=== PATIENT | female | born 1945 | race Caucasian/White ===

== ENCOUNTER 2022-12-31 16:16 | Emergency (ER) | payer MEDICARE, OTHER, SELFPAY ==
--- NOTE | 2022-12-31 16:15 | ECG_ITS ---
APPROVED REPORT Exam: Resting ECG HR:81 bpm ECG Measurements Heart Rate 81 AXES CO 195 P 78 QRSd 93 QRS -28 QT 395 T 69 QTc 432 Conclusion SINUS RHYTHM SEPTAL MYOCARDIAL INFARCTION , PROBABLY OLD [40+ ms Q WAVE IN V1/V2] ABNORMAL ECG UNCONFIRMED REPORT Electronically signed by : Artemio Bearden MD 01/02/2023 17:47:30
[2022-12-31 16:16] VITALS: BP 164/54; PULSE 78; RESP 16; TEMP 36.7; O2SAT 95; BMI 20.1
--- NOTE | 2022-12-31 16:19 | XR_ITS ---
PROCEDURE INFORMATION: Exam: XR Chest Exam date and time: 12/31/2022 4:28 PM Age: 77 years old Clinical indication: Cough and shortness of breath; Additional info: SOA TECHNIQUE: Imaging protocol: Radiologic exam of the chest. Views: 1 view. COMPARISON: No relevant prior studies available. FINDINGS: Lungs: No evidence of pneumonia or interstitial edema. Pleural spaces: Unremarkable. No pleural effusion. No pneumothorax. Heart/Mediastinum: Unremarkable. No cardiomegaly. Bones/joints: Unremarkable. IMPRESSION: No evidence of pneumonia or interstitial edema.
--- NOTE | 2022-12-31 16:28 | HMH.EDGENADL ---
Discharge Plan Disposition Patient Disposition: Home, Self-Care Condition: Good Prescriptions Prescriptions: New nitrofurantoin monohyd/m-cryst [Macrobid] 100 mg capsule 100 mg PO BID 7 Days Qty: 14 0RF Rx Instructions: must administer with a meal/food epinephrine [EpiPen] 0.3 mg/0.3 mL auto-injector 0.3 mg IM Q10M PRN (Reason: anaphylaxis) Qty: 2 0RF Rx Instructions: for 2 doses Referrals Follow up/Referrals: Provider,MD Padilla [Primary Care Provider] - See instructions Leif Tamez MD [Staff Physician] - See instructions Activity Restrictions/Add. Instructions Additional Instructions/Restrictions: You were evaluated in the emergency department today. At this time, your heart enzyme is mildly elevated. Please see Dr. Longo in cardiology clinic tomorrow at 11am. Call them in the morning to verify the appointment. quality assurance supervisor trim the prescriptions for the EpiPen and antibiotics at the pharmacy. Use the EpiPen as needed for severe allergic reactions. You may take Benadryl at home every 8 hours as needed for symptoms. Complete full course of antibiotics for urinary tract infection as prescribed. Return to the emergency department for any new or worsening symptoms, such as chest pain, shortness of breath, throat swelling, or other concerns. Clinical Impressions Clinical Impression: Anaphylaxis, Acute UTI Instructions Patient Instructions: DI for Urinary Tract Infection (UTI), DI for Adverse Drug Reaction -- Allergic Discharge ED Provider: Yandy Baer General Adult HPI General Chief complaint: Allergic Reaction Stated complaint: ALLERGIC REACTION Time Seen by Provider: 12/31/22 16:19 History of Present Illness HPI narrative: This patient is a 77-year-old female with a history of hypertension, hyperlipidemia, anxiety, and GERD presenting to the emergency department for evaluation with concern for possible allergic reaction. Patient reports that she is allergic to amoxicillin, but she developed UTI symptoms today so she took a pill of amoxicillin at home that was previously prescribed to her by her dentist. She did not take it initially when she was prescribed by her dentist given her allergy, but with UTI symptoms today she thought that it might help. 40 minutes after taking this medication, she developed tightness in her throat, swelling of her tongue, and perioral tingling. She also developed an urticarial rash as well as shortness of breath. She took 25 mg of Benadryl at home, and EMS gave her another 25 mg of Benadryl. They also gave her a nebulizer treatment for wheezing. Upon arrival, she started to complain of nausea and feeling she was going to vomit. She reports that she was fine prior to this aside from the UTI symptoms. She denies any recent fevers, chills, chest pain, abdominal pain, change in bowel movements, or other concerns. Related Data Previous Rx's Medication Instructions Recorded epinephrine 0.3 mg/0.3 mL 0.3 mg (0.3 mL) IM Q10M PRN 12/31/22 injection, auto-injector (EpiPen) anaphylaxis #2 ea nitrofurantoin 100 mg PO BID 7 days #14 caps 12/31/22 monohydrate/macrocrystals 100 mg capsule (Macrobid) Allergies Allergy/AdvReac Type Severity Reaction Status Date / Time No Known Allergies Allergy Verified 12/31/22 18:56 [facility] Disclaimer: The information contained in this section may have been updated after the patient was seen, as this information can be updated by other users. Social History Smoking Status: Never smoker alcohol intake: never current occupational status: retired Travel in the last 8 weeks: None ROS Obtained: Yes All systems reviewed & no additional complaints except as documented Physical Exam General General appearance: alert and in no apparent distress Head Head exam: atraumatic and normocephalic Eye Eye exam: Present normal appearance, PERRL and EOMI ENT ENT exam: Pr
[2022-12-31 16:35] LABS: Basophils % 0.2 % (0.1-2.0); Eosinophils # 0.2 K/mm3 (0.0-0.4); Eosinophils % 1.6 % (0.1-12.0); Hematocrit 37.7 % (37.0-47.0); Hemoglobin 12.2 g/dL (12.2-16.2); Lymphocytes # 3.1 K/mm3 (0.7-4.5); Lymphocytes % 21.4 % (10-50); Mean Corpuscular HGB Conc 32.3 g/dL (31.8-35.4); Mean Corpuscular Hemoglobin 29.1 pg (27.0-31.2); Mean Corpuscular Volume 90.2 fl (81-99); Mean Platelet Volume 7.5 fl (7.4-10.4); Monocytes # 0.5 K/mm3 (0.1-1.0); Monocytes % 3.7 % (1.7-9.3); Neutrophils # 10.5 K/mm3 (1.8-7.8); Neutrophils % 73.2 % (37.0-80.0); Platelet Count 304 K/mm3 (142-424); Red Blood Count 4.18 M/mm3 (4.20-5.40); Red Cell Distribution Width 13.8 % (11.5-17.5); White Blood Count 14.4 K/mm3 (4.8-10.8)
[2022-12-31 16:40] VITALS: BP 180/77; PULSE 75; RESP 18; O2SAT 94
[2022-12-31 16:46] LABS: Alanine Aminotransferase 31 U/L (12-78); Albumin Level 3.7 g/dl (3.5-5.0); Albumin/Globulin Ratio 1.3 (1.1-1.8); Alkaline Phosphatase 75 U/L (38-126); Aspartate Amino Transferase 43 U/L (14-36); Blood Urea Nitrogen 21 mg/dl (7-17); Calcium 8.3 mg/dl (8.4-10.2); Carbon Dioxide 27 mmol/L (22.0-30.0); Chloride 107 mmol/L (98-107); Creatinine Clearance Estimated 37 mL/min (50-200); Estimated Glomerular Filt Rate 61 ml/min (>60); GFR (African American) 73 ML/MIN (>60); Globulin 2.8 g/dL (1.3-3.2); Glucose 130 mg/dl (74-100); Sodium 141 mmol/L (136-145); Total Protein,Serum 6.5 g/dl (6.3-8.2)
[2022-12-31 16:58] LABS: Troponin I 0.02 ng/ml (0.00-0.034)
[2022-12-31 18:31] LABS: Microscopic, Urine URINE MICROSCOPIC (MICROSCOPIC)
[2022-12-31 18:49] LABS: Appearance,Urine CLEAR (Clear); Bilirubin,Urine Negative (Negative); Blood, Urine Negative (Negative); Color,Urine YELLOW (Yellow); Glucose,Urine (UA) Negative (Negative); Ketones,Urine Negative (Negative); Leukocyte Esterase,Urine 1+ (Negative); Nitrate,Urine Negative (Negative); Protein,Urine Negative (Negative); Specific Gravity, Urine 1.015 (1.005-1.030); Urobilinogen,Urine 0.2 EU/dl (0.2)
[2022-12-31 19:01] VITALS: BP 126/50; PULSE 76; O2SAT 98
[2022-12-31 20:09] LABS: Troponin I 0.06 ng/ml (0.00-0.034)
--- NOTE | 2022-12-31 20:22 | ECG_ITS ---
APPROVED REPORT Exam: Resting ECG HR:69 bpm ECG Measurements Heart Rate 69 AXES QRSd 92 QRS -24 QT 431 T 82 QTc 450 Conclusion SUPRAVENTRICULAR RHYTHM BORDERLINE LEFT AXIS DEVIATION [QRS AXIS < -20] NONSPECIFIC T-WAVE ABNORMALITY ABNORMAL RHYTHM ECG UNCONFIRMED REPORT Electronically signed by : Artemio Bearden MD 01/02/2023 17:46:52
--- NOTE | 2022-12-31 20:35 | PC.NURSE ---
Dr. Laws paged for DR. Baer
[2022-12-31 20:42] VITALS: BP 138/56; PULSE 70; RESP 13; TEMP 36.7; O2SAT 97
--- NOTE | 2022-12-31 20:47 | PC.NURSE ---
rounded on patient, family at bedside no needs at this time
== END 2022-12-31 20:51 | disposition home or self-care (01) ==
PROVIDERS: Emergency Provider Emergency Medicine
DX: T78.2XXA Anaphylactic shock, unspecified, initial encounter (principal); R22.0 Localized swelling, mass and lump, head; L50.9 Urticaria, unspecified; T36.95XA Adverse effect of unspecified systemic antibiotic, initial encounter; N39.0 Urinary tract infection, site not specified; I10 Essential (primary) hypertension; E78.5 Hyperlipidemia, unspecified; F41.9 Anxiety disorder, unspecified; K21.9 Gastro-esophageal reflux disease without esophagitis
CPT/HCPCS: 71045; 80053; 81001; 84484; 85025; 87086; 87088; 87186; 93005; 96372; 96374; 96375; 99285; J2405

== ENCOUNTER → 2023-01-21 06:05 | Outpatient (CLI) | payer MEDICARE, OTHER, SELFPAY ==
--- NOTE | 2023-01-21 06:17 | NM_ITS ---
APPROVED REPORT Exam: Nuclear Stress Test Indication: palpitations..fatigue Patient Location: Outpatient Stress Tech: Mary Milian ND Tech:Bhavana Burciaga RUPALForest RT(R)(N) Ht: 5 ft 2 in Wt: 118 lbs Bra Size: 34a HR: 62 bpm BP: 184/65 mmHg BSA: 1.53 m2 Rhythm: NSR TID: 1.11 BMI: 21.5 History: palpitations..fatigue Procedure: Patient received 0.4 mg of intravenous Lexiscan, resting heart rate 62 bpm, resting blood pressure 184/65 mmHg, with Lexiscan maximum heart rate achieved was 82 bpm which is 85 % of the maximum predicted heart rate and blood pressure was 184/65 mmHg. With Lexiscan, patient denied any complaint of chest pain. Cardiac Stress and Resting SPECT Images: Cardiac Stress and Resting SPECT images were obtained using technetium 99m Myoview 31.2 mCi stress and 10.86 mCi at rest. Resting and stress imaging in both supine and prone positions demonstrate no evidence of fixed or reversible perfusion defects. Gated imaging demonstrates normal global and regional LV systolic function. LVEF is calculated at 62% Conclusion: No evidence of fixed or reversible perfusion defects. Gated imaging demonstrates normal global and regional LV systolic function. LVEF is calculated at 62% Electronically signed by : Qing Tamez, 01/23/2023 16:33:11
--- NOTE | 2023-01-21 11:17 | CA_ITS ---
APPROVED REPORT Exam: Pharmacologic Technologist: Mary Milian Ht: 5 ft 2 in Wt: 118 lbs BSA: 1.53 m2 HR: 59 bpm BP: 184/65 mmHg Rhythm: NSR Indications: Chest pain, Shortness of Breath Medical History Medications: Aspirin,,,,, Propranolol,,,,, Pantoprazole,,,,, Atorvastatin,,,,, Escitalopram,,,,, Montelukast,,,,, Multivitamin,,,,, Epinephrine,,,,, Macrobid,,,,, Stress Test Details Test: LEXISCAN HR Resting HR: 62 bpm Max Heart Rate (APMHR): 143 bpm Max HR Achieved: 82 bpm Target HR (85% APMHR): 122 bpm % of APMHR: 57 Recovery HR: 75 bpm BP Resting BP: 184.0/65.0 mmHg Max BP: 184.0/65.0 mmHg Recovery BP: 167.0/55.0 mmHg ECG Resting ECG: Sinus bradycardia, otherwise normal Stress ECG: No change Arrhythmia: PACs Clinical Exercise duration: 04:11 min Highest Stage Achieved: Exercise capacity: n/a METs Stress ECG Conclusion Symptoms: Mild tingling in the arms. No chest pain. Arrhythmias/Ectopy: occasional PAC ST-T Changes: No significant ST changes Conclusion: Unremarkable Lexiscan stress. Myoview images reported separately. Test Summary REST . . . . . . . Resting REST 04:22 . . 62 . 184/ 65 . . Stage 1 . . . . . . . Myoview Injected Stage 1 01:00 . . 71 . . . . Stage 2 01:00 . . 77 . 169/ 66 . . Stage 3 01:00 . . 77 . 173/ 63 . . Stage 4 01:00 . . 76 . . . . Stage 4 01:11 . . 77 . 174/ 65 . Stop exercise at 04:11 RECOVERY 01:00 . . 80 . . . . RECOVERY 02:00 . . 77 . 183/ 66 . . RECOVERY 03:00 . . 75 . 183/ 66 . . RECOVERY 03:49 . . 73 . 167/ 55 . . Electronically signed by : Qing Tamez, 01/23/2023 16:31:30
== END ==
PROVIDERS: PCP Nurse Practitioner Family; Visit Provider Physician Assistant
DX: J45.909 Unspecified asthma, uncomplicated (principal); R06.00 Dyspnea, unspecified; R42 Dizziness and giddiness; R77.8 Other specified abnormalities of plasma proteins; T78.2XXA Anaphylactic shock, unspecified, initial encounter; T78.40XA Allergy, unspecified, initial encounter
CPT/HCPCS: 78452; 93017; A9502; J2785

== ENCOUNTER → 2023-01-26 09:31 | Outpatient (CLI) | payer MEDICARE, OTHER, SELFPAY ==
--- NOTE | 2023-01-26 09:31 | MM_ITS ---
PROCEDURE INFORMATION: Exam: Bilateral Screening 3D Mammography Exam date and time: 01/26/2023 9:31 AM Age: 77 years old Clinical indication: Screening mammogram. Reportedly the patient has a palpable lump within her left breast currently. TECHNIQUE: Imaging protocol: Bilateral Screening tomosynthesis and 2D mammography including computer-aided detection (CAD) when performed. COMPARISON: MG DIGIT MAMM SCREENING 10/09/2017 8:00 AM FINDINGS: MAMMOGRAPHY: Breast composition: The breast is heterogeneously dense, which may obscure small masses. Mass: None. Architectural distortion: No new or suspicious architectural distortion. Calcifications: No new or suspicious calcifications are present Asymmetric density: No new or suspicious asymmetric density is present Skin thickening: None. Axillary adenopathy: None. IMPRESSION: No mammographic evidence of malignancy. Targeted ultrasound of the patient's reported palpable of the upper outer left middle 1/3 is required to complete this examination based on clinical presentation ASSESSMENT: BI-RADS category 0: Incomplete-need additional imaging evaluation
== END ==
PROVIDERS: PCP Nurse Practitioner Family; Visit Provider Physician Assistant
DX: Z12.31 Encounter for screening mammogram for malignant neoplasm of breast (principal)
CPT/HCPCS: 77063; 77067

== ENCOUNTER 2023-02-12 13:17 | Emergency (ER) | payer MEDICARE, OTHER, SELFPAY ==
[2023-02-12 13:19] VITALS: BP 190/75; PULSE 68; RESP 16; TEMP 36.4; O2SAT 98; BMI 21.4
[2023-02-12 13:24] VITALS: BP 190/75; PULSE 61; O2SAT 98
[2023-02-12 13:31] VITALS: BP 180/69; PULSE 67; O2SAT 98
--- NOTE | 2023-02-12 13:39 | ECG_ITS ---
APPROVED REPORT Exam: Resting ECG HR:59 bpm ECG Measurements Heart Rate 59 AXES MN 220 P 79 QRSd 87 QRS -12 QT 439 T 71 QTc 439 Conclusion SINUS BRADYCARDIA WITH FIRST DEGREE AV BLOCK LEFT VENTRICULAR HYPERTROPHY AND ST-T CHANGE [VOLTAGE CRITERIA PLUS ST/T ABNORMALITY] ABNORMAL ECG UNCONFIRMED REPORT Electronically signed by : Artemio Bearden MD 02/13/2023 16:02:55
--- NOTE | 2023-02-12 13:53 | HMH.EDGENADL ---
Discharge Plan Disposition Patient Disposition: Home, Self-Care Prescriptions Prescriptions: No Action losartan 50 mg tablet 50 mg PO DAILY Qty: 30 2RF atorvastatin 40 mg tablet 40 mg PO DAILY pantoprazole 40 mg tablet,delayed release (DR/EC) 40 mg PO DAILY montelukast 10 mg tablet 10 mg PO DAILY aspirin 81 mg tablet 81 mg PO DAILY propranolol 120 mg capsule,extended release 24 hr 120 mg PO DAILY tmrcmuzwiusg-cghxgvyc-keusqx Tablet 1 tab PO DAILY escitalopram oxalate 20 mg tablet 20 mg PO DAILY nitrofurantoin monohyd/m-cryst [Macrobid] 100 mg capsule 100 mg PO BID 7 Days Qty: 14 0RF Rx Instructions: must administer with a meal/food epinephrine [EpiPen] 0.3 mg/0.3 mL auto-injector 0.3 mg IM Q10M PRN (Reason: anaphylaxis) Qty: 2 0RF Rx Instructions: for 2 doses Referrals Follow up/Referrals: Provider,Referral, MD [Primary Care Provider] - See instructions Activity Restrictions/Add. Instructions Additional Instructions/Restrictions: At this time it was felt you are safe to be discharged home. Please present to Dr. Pete's office for continued evaluation and antihypertensive administration as well as establishment of care. Clinical Impressions Clinical Impression: Asymptomatic hypertension Discharge ED Provider: Scottie Holliday General Adult HPI General Chief complaint: Recheck/Abnormal Lab/Rx Stated complaint: high blood pressure Time Seen by Provider: 02/12/23 13:40 Mode of Arrival: Ambulatory Source of Information: Patient Limitations: No Limitations Description of Symptoms (Recalled from ER Triage Doc. by RN): Presents to ED with increased BP. Patient reports she went to [facility] this morning and checked her BP and it was 172/82. Denies hx of Htn. Patient does take Losartan potassium 50mg daily. History of Present Illness HPI narrative: Patient is a 77-year-old female with no past medical leave high blood pressure who presents emergency department for evaluation of hypertension. Patient states that she went to dentist today and had partial dentures put in and when she returned home she checked her blood pressure and the top number was in the 170s. She does have a mild headache. No severe headache, no trauma, no chest pain, no shortness of breath, no other acute complaints at this time. Related Data Home Medications Medication Instructions Recorded Confirmed aspirin 81 mg tablet 81 mg PO DAILY 01/15/23 02/11/23 atorvastatin 40 mg tablet 40 mg PO DAILY 01/15/23 02/11/23 escitalopram oxalate 20 mg tablet 20 mg PO DAILY 01/15/23 02/11/23 montelukast 10 mg tablet 10 mg PO DAILY 01/15/23 02/11/23 xirfvaflbdho-aflsdwgf-vsiikw tablet 1 tab PO DAILY 01/15/23 02/11/23 pantoprazole 40 mg tablet,delayed 40 mg PO DAILY 01/15/23 02/11/23 release propranolol 120 mg capsule,24 120 mg PO DAILY 01/15/23 02/11/23 hr,extended release Previous Rx's Medication Instructions Recorded epinephrine 0.3 mg/0.3 mL 0.3 mg (0.3 mL) IM Q10M PRN 12/31/22 injection, auto-injector (EpiPen) anaphylaxis #2 ea nitrofurantoin 100 mg PO BID 7 days #14 caps 12/31/22 monohydrate/macrocrystals 100 mg capsule (Macrobid) losartan 50 mg tablet 50 mg PO DAILY #30 tabs 02/11/23 Allergies Allergy/AdvReac Type Severity Reaction Status Date / Time Penicillins AdvReac tongue Verified 02/11/23 08:43 swelling PFSH [facility] Disclaimer: The information contained in this section may have been updated after the patient was seen, as this information can be updated by other users. Medical History (Updated 02/12/23 @ 14:01 by Scottie Holliday MD) Allergies Asthma Breast pain, left Dizziness Dyspnea Elevated troponin HTN (hypertension) Left breast mass Screening mammogram, encounter for Social History Smoking Status: Never smoker alcohol intake: never current occupational status: retired Tra
[2023-02-12 14:09] VITALS: BP 169/64; PULSE 59; RESP 16; TEMP 36.4; O2SAT 96
== END 2023-02-12 14:12 | disposition home or self-care (01) ==
PROVIDERS: Emergency Provider Emergency Medicine
DX: R51.9 Headache, unspecified (principal); I10 Essential (primary) hypertension; J45.909 Unspecified asthma, uncomplicated
CPT/HCPCS: 93005; 99283

== ENCOUNTER → 2023-03-02 07:36 | Outpatient (CLI) | payer MEDICARE, OTHER, SELFPAY ==
--- NOTE | 2023-03-02 07:43 | CA_ITS ---
APPROVED REPORT EXAM: Comprehensive 2D, Doppler, and color-flow Echocardiogram Sr Vice President: Anel Foley CRT Ht: 5 ft 2 in Wt: 114lbs BSA: 1.51 BP: 153/56 mmHg Indications: Hypertension/HDD, asthma, ablation 2D Dimensions LVOT 1.69 cm (M/F) 1.5-2.5 LA Volume 44.90 mL LA Volume Index 29.74 mL/m2 (M/F) 16-34 M-Mode Dimensions RVDd 2.38 cm (0.9-2.6) LA Diam 3.87 cm (1.9-4.0) LVDd 4.27 cm (3.5-5.7) Ao Diam 3.27 cm (2.0-3.7) LVDs 2.53 cm (3.5-5.7) IVSd 1.37 cm (0.6-1.1) PWd 0.87 cm (0.6-1.1) EF (Teich) 71.80% FS 40.70% EDV (Teich) 81.70 mL TAPSE 2.56 (<1.7) ESV (Teich) 23.00 mL LV Diastology E Decel Time 163.00 (160-240 msec) E/A Ratio 0.80 MED E' 6.40 (< 7 cm/sec) MED A' 11.20 cm/s E'/MED E' Ratio 11.80 (>14) LAT E' 7.80 (<10 cm/sec) LAT A' 15.20 cm/s E/LAT E' Ratio 9.68 (>14) Aortic Valve AI PHT 510.00 ms AO Peak GR. 8.10 mmHg Mitral Valve MV A Velocity 94.00 (40-130 cm/s) E/A Ratio 0.80 MV Decel. Time 163.00 (160-240 ms) Pulmonary Valve PV Peak Velocity 214.00 (50-150 cm/s) Tricuspid Valve TR P. Velocity 219.00 cm/s RAP Estimate 10.00 mmHg RVSP 29.10 mmHg Left Ventricle The left ventricle is normal size. The left ventricular systolic function is normal. The left ventricular ejection fraction is within the normal range. There is normal left ventricular wall thickness. There is normal LV segmental wall motion. The left ventricular diastolic function is normal. LVEF is 60%. Right Ventricle The right ventricle is normal size. The right ventricular systolic function is normal. Atria The left atrium size is normal. The right atrium size is normal. There is no Doppler evidence of interatrial shunt. Aortic Valve The aortic valve is mildly thickened. There is no aortic valvular stenosis. Mild to moderate aortic regurgitation. Mitral Valve Mild mitral annular calcification. The mitral valve is mildly thickened. No evidence of mitral valve stenosis. Trace mitral regurgitation. Tricuspid Valve The tricuspid valve leaflets are thin and pliable. Trace tricuspid regurgitation. There was insufficient TR jet to estimate RVSP. Pulmonic Valve The pulmonary valve is normal in structure. Trace pulmonic regurgitation. Great Vessels The aortic root is normal in size. The ascending aorta is normal in size. IVC is normal in size and collapses >50% with inspiration. Pericardium There is no pericardial effusion. Other Information Study Quality: Adequate Conclusion Normal biventricular size and systolic function. Mild to moderate AI. Electronically signed by : Qing Tamez MD 03/02/2023 22:00:17
--- NOTE | 2023-03-02 08:17 | US_ITS ---
PROCEDURE INFORMATION: Exam: US Left Breast, Complete Exam date and time: 03/02/2023 9:12 AM Age: 77 years old Clinical indication: Palpable abnormalities in the left breast TECHNIQUE: Imaging protocol: Complete ultrasound of all four quadrants of the left breast and the retroareolar regions, including ultrasound of the axilla when performed. COMPARISON: MG MM DIG SCREENING MAMM BI W/CAD 01/26/2023 9:31 AM FINDINGS: Breast: Sonographic images of the left breast including the retroareolar region, all 4 quadrants and the axilla do not demonstrate any solid masses. 0.5 cm cyst in the 1 o'clock axis 7 cm from the nipple corresponding to the patient's complaint of a palpable abnormality. There is an immediately adjacent 0.3 cm cyst. Additional 0.6 cm cyst in the left 12 o'clock axis 7 cm from the nipple also reported as an area of palpable concern. No architectural distortion or acoustical shadowing. No skin thickening or axillary adenopathy. IMPRESSION: Palpable abnormalities in the left upper breast correspond to underlying benign cystic change.Further evaluation of a palpable abnormality should be based on clinical grounds regardless of radiographic findings or lack thereof..Annual bilateral mammographic screening is recommended unless otherwise clinically indicated. ASSESSMENT: BI-RADS Category 2: Benign
== END ==
PROVIDERS: PCP Nurse Practitioner Family; Visit Provider Nurse Practitioner Family
DX: J45.909 Unspecified asthma, uncomplicated (principal); R06.00 Dyspnea, unspecified; R42 Dizziness and giddiness; R77.8 Other specified abnormalities of plasma proteins; T78.2XXA Anaphylactic shock, unspecified, initial encounter; T78.40XA Allergy, unspecified, initial encounter; Z12.31 Encounter for screening mammogram for malignant neoplasm of breast; N63.20 Unspecified lump in the left breast, unspecified quadrant; N64.4 Mastodynia
CPT/HCPCS: 76641; 93306

== ENCOUNTER → 2023-03-12 09:15 | Outpatient (CLI) | payer MEDICARE, OTHER, SELFPAY ==
--- NOTE | 2023-03-12 09:15 | XR_ITS ---
FINAL REPORT TECHNIQUE: Bone mineral density was calculated of the lumbar spine and hip. CLINICAL HISTORY: Osteoporosis FINDINGS: Using L1-4, the bone mineral density of the spine is 1.150 g/cm2, corresponding to T-score of 0.9 but this may be falsely elevated secondary to hypertrophic changes. Using the left hip, the bone mineral density of the femoral neck is 0.779 g/cm2, corresponding to a T-score of -1.3. Using the right hip, the bone mineral density of the femoral neck is 0.663 g/cm2, corresponding to a T-score of -1.7. NOTE: T-score: Standard deviation compared with peak bone mass of young adult mean. *Following the recommendations of the International Society of Bone densitometry, classification of hip BMD is based on the lower of two T-scores; total hip or femoral neck. IMPRESSION: Diminished bone mineral density consistent with low bone density. FRAX reports fracture risk of 12% major osteoporotic fracture and 2.9% hip fracture. Reviewed, Interpreted and Dictated by Candelario Hunter III, MD Transcribed by Laar Alvarez Authenticated and [facility]
== END ==
PROVIDERS: PCP Internal Medicine; Visit Provider Internal Medicine
DX: Z13.820 Encounter for screening for osteoporosis (principal); M81.0 Age-related osteoporosis without current pathological fracture
CPT/HCPCS: 77080

== ENCOUNTER → 2023-04-01 11:43 | Outpatient (CLI) | payer MEDICARE, OTHER, SELFPAY | PROVIDERS: PCP Internal Medicine; Visit Provider Internal Medicine | DX: R30.0 Dysuria (principal); R31.9 Hematuria, unspecified; B96.29 Other Escherichia coli [E. coli] as the cause of diseases classified elsewhere; B96.1 Klebsiella pneumoniae [K. pneumoniae] as the cause of diseases classified elsewhere; B96.4 Proteus (mirabilis) (morganii) as the cause of diseases classified elsewhere | CPT/HCPCS: 87086 ==

== ENCOUNTER 2023-09-14 09:25 | Outpatient (CLI) | payer MEDICARE, OTHER, SELFPAY ==
[2023-09-14 10:41] LABS: Chloride 106 mmol/L (98-107)
[2023-09-14 10:42] LABS: Potassium 4.2 mmoL/L (3.5-5.1); Sodium 141 mmol/L (136-145)
[2023-09-14 10:44] LABS: Alanine Aminotransferase 25 U/L (12-78); Anion Gap 7.2 mEq/L (5-15); Aspartate Amino Transferase 33 U/L (14-36); Bilirubin,Unconjugated 1.5 mg/dL (0.0-1.1); Blood Urea Nitrogen 13 mg/dl (7-17); Carbon Dioxide 32 mmol/L (22.0-30.0); Estimated Glomerular Filt Rate 81 ml/min (>60); GFR (African American) 98 ML/MIN (>60)
[2023-09-14 10:45] LABS: Albumin Level 3.9 g/dl (3.5-5.0); Alkaline Phosphatase 78 U/L (38-126); Bilirubin,Direct 0.2 mg/dl (0.0-0.4); Bilirubin,Indirect 1.4 mg/dL (0.0-0.9); Bilirubin,Total 1.6 mg/dl (0.2-1.3); Calcium 9.6 mg/dl (8.4-10.2); Chol/HDL Ratio 3.7 (1-3.5); Cholesterol 100 mg/dl (140-200); Glucose 159 mg/dl (74-100); HDL Cholesterol 27 mg/dl (40-60); Total Protein,Serum 6.3 g/dl (6.3-8.2); Triglycerides 127 mg/dl (30-150); VLDL Cholesterol 25 mg/dL (0-40)
[2023-09-14 10:56] LABS: Direct LDL Cholesterol 47.14 mg/dL (100-129)
== END 2023-09-14 23:59 | disposition home or self-care (01) ==
LOC: LAB 09:25
PROVIDERS: PCP Internal Medicine; Visit Provider Nurse Practitioner
DX: I10 Essential (primary) hypertension; E78.2 Mixed hyperlipidemia
CPT/HCPCS: 36415; 80048; 80061; 80076

== ENCOUNTER 2023-10-12 20:52 | Emergency (ER) | payer MEDICARE, SELFPAY ==
[2023-10-12 20:52] VITALS: BP 195/84; PULSE 66; RESP 12; TEMP 36.6; O2SAT 99; BMI 21.4
[2023-10-12 21:15] VITALS: BP 157/60; PULSE 60; RESP 12; TEMP 36.6; O2SAT 99
--- NOTE | 2023-10-12 21:44 | ED_ITS ---
Discharge Plan Disposition Patient Disposition: Home, Self-Care Condition: Good Chief Complaint: Recheck/Abnormal Lab/Rx Prescriptions Prescriptions: No Action aspirin 81 mg tablet 81 mg PO DAILY [id number] Tablet 1 tab PO DAILY Qty: 90 0RF losartan 25 mg tablet 25 mg PO DAILY Qty: 90 3RF pantoprazole 40 mg tablet,delayed release (DR/EC) 40 mg PO DAILY Qty: 90 3RF atorvastatin 40 mg tablet 40 mg PO DAILY Qty: 90 3RF propranolol 120 mg capsule,extended release 24 hr 120 mg PO DAILY Qty: 90 3RF Referrals Follow up/Referrals: Jorge Pete DO [Primary Care Provider] - See instructions Activity Restrictions/Add. Instructions Additional Instructions/Restrictions: You have been evaluated in the ED for your complaints. You may follow-up with your PCP in the next 3 to 5 days. Please return to ED for any new or worsening symptoms. Please take your blood pressure medications as discussed. Clinical Impressions Clinical Impression: HTN (hypertension) Qualifiers: Hypertension type: primary hypertension Qualified Code(s): I10 - Essential (primary) hypertension Discharge ED Provider: Mahendra Hopper Adult HPI General Chief complaint: Recheck/Abnormal Lab/Rx Stated complaint: elevated bp Time Seen by Provider: 10/12/23 21:44 Mode of Arrival: Ambulatory Source of Information: Patient Limitations: No Limitations Description of Symptoms (Recalled from ER Triage Doc. by RN): patient ambulatory to ED with complaints of high blood pressure since this morning. She states that she woke up with a headache this morning and checked her blood pressure with systolic higher than 200. She reports that she stopped taking her blood pressure medication approx 3 months ago because she felt as if she did not need to take it anymore. Denies SOA, chest pain at present History of Present Illness HPI narrative: 78-year-old female with past medical history significant for hyperlipidemia, hypertension on 25 mg of losartan, asthma, abnormal heart rhythm on propranolol, presents today for evaluation concerning hypertension. Patient states that earlier this morning she woke up with a headache and checked her blood pressure and noted it was 191/71. She states that the headache is since resolved since that time. She did take her losartan this morning and states she also took another dose around 4:30 PM. She states that prior to taking her medications today she had not taken them in about 2 months. Denies any headaches at this time, visual changes, chest pain or shortness of breath. Related Data Home Medications Medication Instructions Recorded Confirmed aspirin 81 mg tablet 81 mg PO DAILY 01/15/23 09/14/23 Previous Rx's Medication Instructions Recorded [id number]-bycgepat-jxyedk tablet 1 tab PO DAILY #90 tabs 02/20/23 atorvastatin 40 mg tablet 40 mg PO DAILY #90 tabs 07/03/23 losartan 25 mg tablet 25 mg PO DAILY #90 tabs 07/03/23 pantoprazole 40 mg tablet,delayed 40 mg PO DAILY #90 tabs 07/03/23 release propranolol 120 mg capsule,24 120 mg PO DAILY #90 caps 07/15/23 hr,extended release Allergies Allergy/AdvReac Type Severity Reaction Status Date / Time Beta-Blockers Allergy Mild rash Verified 09/14/23 08:50 (Beta-Adrenergic Bloc Penicillins AdvReac tongue Verified 09/14/23 08:50 swelling PFSH PFS Disclaimer: The information contained in this section may have been updated after the patient was seen, as this information can be updated by other users. 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 Breast pain, left Left breast mass HTN (hypertension) Dizziness Dyspnea Screening mammogram, encounter for Elevated troponin Allergies Asthma Surgical History Hx of cholecystectomy History of bowel resection History of hysterectomy Family History Father Parkinson disease Mother Hypertension Heart attack Sister Hypertension Cancer Son Adopted Family/Other Coronary artery disease Social History Smoking Status: Never smoker alcohol intake: never current occupational status: retired Travel in the last 8 weeks: None ROS Obtained: Yes All systems reviewed & no additional complaints except as documented Physical Exam General General appearance: alert and in no apparent distress Head Head exam: atraumatic and normocephalic Eye Eye exam: Present normal appearance, PERRL and EOMI ENT ENT exam: Present normal oropharynx and mucous membranes moist Neck Neck exam: Present full ROM; Absent meningismus Respiratory Respiratory exam: Absent respiratory distress, wheezes, stridor or accessory muscle use Cardiovascular Cardiovascular exam: Present normal rhythm Abdominal Exam Abdominal exam: Present soft; Absent distention, tenderness, guarding, rebound o r rigidity Neurological Exam Neurological exam: Present alert, oriented X3 and CN II-XII intact; Absent motor sensory deficit Psychiatric Psychiatric exam: Present normal affect and normal mood Skin Skin exam: Present warm and dry Medical Decision Making Medical Records Medical records reviewed: Yes I reviewed the patient's medical records. Kvng Inquiry Pt receiving controlled substance: No Kvng was queried for this patient: No Vital Signs: 10/12/23 20:52 Temperature 97.9 F Temperature Source Oral Pulse Rate [Right] 66 Respiratory Rate 12 Blood Pressure [Right Arm] 195/84 H Blood Pressure Mean [Right Arm] 121 Blood Pressure Source [Right Arm] Automatic Cuff Blood Pressure Position [Right Arm] Sitting 02 Sat by Pulse Oximetry 99 Oxygen Delivery Method Room Air Medical Decision Narrative: 78-year-old female with past medical history significant for hyperlipidemia, hypertension on 25 mg of losartan, asthma, abnormal heart rhythm on propranolol, presents today for evaluation concerning hypertension. Patient states that earlier this morning she woke up with a headache and checked her blood pressure and noted it was 191/71. She states that the headache is since resolved since that time. She did take her losartan this morning and states she also took another dose around 4:30 PM. She states that prior to taking her medications today she had not taken them in about 2 months. On assessment, she was hemodynamically stable and in no acute distress. Blood pressure 157/60. Heart rate 60. Chest clear to auscultation bilaterally. Otherwise exam is unremarkable. Diagnoses include but limited to hypertension, complaints. Patient's blood pressure has been appropriate in the ED and she has been asymptomatic during her stay. I discussed with patient that she may continue to check her blood pressure at home daily however that she will need to start taking her medications appropriately to make sure that her pressures are within range. Also instructed patient to follow-up with her PCP. Gave return precautions. She verbalized understanding agreement and was discharged hemodynamically stable and in no distress Critical Care Critical Care Time Critical Care Time: No
[2023-10-12 21:52] VITALS: BP 139/54; PULSE 58; RESP 14; TEMP 36.6; O2SAT 95
== END 2023-10-12 21:56 | disposition home or self-care (01) ==
PROVIDERS: Emergency Provider Emergency Medicine; PCP Internal Medicine
DX: R51.9 Headache, unspecified (principal); I10 Essential (primary) hypertension; E78.5 Hyperlipidemia, unspecified; S60.511A Abrasion of right hand, initial encounter; S60.512A Abrasion of left hand, initial encounter; S60.211A Contusion of right wrist, initial encounter; S60.212A Contusion of left wrist, initial encounter; Z23 Encounter for immunization; W10.1XXA Fall (on)(from) sidewalk curb, initial encounter
CPT/HCPCS: 90471; 90715; 99283

== ENCOUNTER 2023-10-12 22:00 | Emergency (ER) | payer MEDICARE, SELFPAY ==
[2023-10-12 22:02] VITALS: BP 160/62; PULSE 60; RESP 12; TEMP 36.6; O2SAT 95; BMI 21.4
--- NOTE | 2023-10-12 22:21 | ED_ITS ---
Discharge Plan Disposition Patient Disposition: Home, Self-Care Condition: Good Prescriptions Prescriptions: No Action aspirin 81 mg tablet 81 mg PO DAILY [id number]-gktuobsb-iutgof Tablet 1 tab PO DAILY Qty: 90 0RF losartan 25 mg tablet 25 mg PO DAILY Qty: 90 3RF pantoprazole 40 mg tablet,delayed release (DR/EC) 40 mg PO DAILY Qty: 90 3RF atorvastatin 40 mg tablet 40 mg PO DAILY Qty: 90 3RF propranolol 120 mg capsule,extended release 24 hr 120 mg PO DAILY Qty: 90 3RF Referrals Follow up/Referrals: Jorge Pete DO [Primary Care Provider] - See instructions Activity Restrictions/Add. Instructions Additional Instructions/Restrictions: Follow-up with PCP for reevaluation of wounds. Return to ER as needed for any worsening signs or symptoms. Clinical Impressions Clinical Impression: Superficial abrasion Fall Qualifiers: Encounter type: initial encounter Qualified Code(s): W19.XXXA - Unspecified fall, initial encounter Discharge ED Provider: Mahendra Hopper General Adult HPI <ASHLEY Matos - Last Filed: 10/12/23 23:02> General Chief complaint: Fall Stated complaint: AO fall 10/11, bilateral leg and knee lac Time Seen by Provider: 10/12/23 22:21 Mode of Arrival: Ambulatory Source of Information: Patient Limitations: No Limitations Description of Symptoms (Recalled from ER Triage Doc. by RN): patient returns to ED after recent discharge this evening. Patient was walking to car in [facility] parking lot when she tripped on parking bumper block and fell landing on palms, and knees. Denies hitting head. Bilateral knee abrasions along with left palm, and right pinky fingers abrasions. Patient has full range of motion of all extremities at this time. History of Present Illness HPI narrative: Patient was on her way out of the ER when she tripped over a tire block in the parking lot falling down injuring her bilateral shins and palms. Patient was able to ambulate and walk or sit back in the emergency department for evaluation. Patient denies altered sensation and is able to have full range of motion without pain Related Data Home Medications Medication Instructions Recorded Confirmed aspirin 81 mg tablet 81 mg PO DAILY 01/15/23 09/14/23 Previous Rx's Medication Instructions Recorded sdmvkcxonkqj-ohcwxttz-wepeyv tablet 1 tab PO DAILY #90 tabs 02/20/23 atorvastatin 40 mg tablet 40 mg PO DAILY #90 tabs 07/03/23 losartan 25 mg tablet 25 mg PO DAILY #90 tabs 07/03/23 pantoprazole 40 mg tablet,delayed 40 mg PO DAILY #90 tabs 07/03/23 release propranolol 120 mg capsule,24 120 mg PO DAILY #90 caps 07/15/23 hr,extended release Allergies Allergy/AdvReac Type Severity Reaction Status Date / Time Beta-Blockers Allergy Mild rash Verified 09/14/23 08:50 (Beta-Adrenergic Bloc Penicillins AdvReac tongue Verified 09/14/23 08:50 swelling PFSH <ASHLEY Matos - Last Filed: 10/12/23 23:02> [facility], [facility] Disclaimer: The information contained in this section may have been updated after the patient was seen, as this information can be updated by other users. 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 Breast pain, left Left breast mass HTN (hypertension) Dizziness Dyspnea Screening mammogram, encounter for Elevated troponin Allergies Asthma Surgical History Hx of cholecystectomy History of bowel resection History of hysterectomy Family History Father Parkinson disease Mother Hypertension Heart attack Sister Hypertension Cancer Son Adopted Family/Other Coronary artery disease Social History Smoking Status: Never smoker alcohol intake: never current occupational status: retired Travel in the last 8 weeks: None <ASHLEY Matos - Last Filed: 10/12/23 23:02> ROS Obtained: Yes Systems reviewed as appropriate & no additional complaints except as documented Physical Exam <ASHLEY Matos - Last Filed: 10/12/23 23:02> General General appearance: alert and in no apparent distress Respiratory Respiratory exam: Present normal lung sounds bilaterally Cardiovascular Cardiovascular exam: Present regular rate and normal rhythm Neurological Exam Neurological exam: Present alert, oriented X3 and CN II-XII intact Other Other exam information: Patient has superficial abrasions to the bilateral patella right dorsal surface of the DIP of the fifth digit of her hand and bilateral abrasions to her palms. Patient has no bony deformity has no active bleeding. Medical Decision Making <ASHLEY Matos - Last Filed: 10/12/23 23:02> Medical Records Medical records reviewed: Yes I reviewed the patient's medical records. Kvng Inquiry Pt receiving controlled substance: No Vital Signs: 10/12/23 22:02 10/12/23 23:01 Temperature 97.9 F 97.9 F Temperature Source Oral Pulse Rate 63 Pulse Rate [Right] 60 Respiratory Rate 12 14 Blood Pressure 158/78 H Blood Pressure [Right Arm] 160/62 H Blood Pressure Mean [Right Arm] 94 Blood Pressure Source [Right Arm] Automatic Cuff 02 Sat by Pulse Oximetry 95 Oxygen Delivery Method Room Air Lab Data Lab results reviewed: Yes I reviewed the patient's lab results. Medical Decision Narrative: In summary patient is a 78-year-old female who presents to the emergency department for evaluation of fall. Patient is hemodynamically stable upon arrival, afebrile. Sickle exam. Differential diagnosis includes superficial abrasion versus possible fracture. I considered workup for imaging however patient has full range of motion with no bony deformity and no pain with range of motion testing. Therefore workup was deferred. Patient's wounds were cleared and cleaned. And no deep or structures were injured and no laceration to repair. Patient given a tetanus booster and discharged home. <Mahendra Hopper DO - Last Filed: 10/12/23 23:33> Vital Signs: 10/12/23 22:02 10/12/23 23:01 Temperature 97.9 F 97.9 F Temperature Source Oral Pulse Rate 63 Pulse Rate [Right] 60 Respiratory Rate 12 14 Blood Pressure 158/78 H Blood Pressure [Right Arm] 160/62 H Blood Pressure Mean [Right Arm] 94 Blood Pressure Source [Right Arm] Automatic Cuff 02 Sat by Pulse Oximetry 95 Oxygen Delivery Method Room Air Medical Decision Narrative: In summary patient is a 78-year-old female who presents to the emergency department for evaluation of fall. Patient is hemodynamically stable upon arrival, afebrile. PEx exam. Differential diagnosis includes superficial abrasion versus possible fracture. I considered workup for imaging however patient has full range of motion with no bony deformity and no pain with range of motion testing. Therefore workup was deferred. Patient's wounds were cleared and cleaned. And no deep or structures were injured and no laceration to repair. Patient given a tetanus booster and discharged home. I was consulted by the SONJA, and we discussed the complexity of the problems being addressed. I approved the treatment and management plan for this patient's care in the Emergency Department, thus performing a substantive portion of the medical decision making. Mahendra Hopper, DO Critical Care <ASHLEY Matos - Last Filed: 10/12/23 23:02> Critical Care Time Critical Care Time: No
[2023-10-12] MEDS: TET/DIPHTH/PERT-ADULT 0.5ML SYRINGE 0.5 ML IM (22:51)
[2023-10-12 23:01] VITALS: BP 158/78; PULSE 63; RESP 14; TEMP 36.6; O2SAT 96
== END 2023-10-12 23:02 | disposition home or self-care (01) ==
PROVIDERS: Emergency Provider Emergency Medicine; PCP Internal Medicine
DX: S60.511A Abrasion of right hand, initial encounter (principal); S60.512A Abrasion of left hand, initial encounter; S80.211A Abrasion, right knee, initial encounter; S80.212A Abrasion, left knee, initial encounter; W10.1XXA Fall (on)(from) sidewalk curb, initial encounter; Z23 Encounter for immunization
CPT/HCPCS: 90471; 90715; 99283

== ENCOUNTER 2023-10-22 14:23 | Outpatient (CLI) | payer MEDICARE, SELFPAY ==
[2023-10-22 15:18] LABS: Basophils % 0.7 % (0.1-2.0); Eosinophils # 0.5 K/mm3 (0.0-0.4); Eosinophils % 7.4 % (0.1-12.0); Hematocrit 35.6 % (37.0-47.0); Hemoglobin 11.9 g/dL (12.2-16.2); Lymphocytes # 1.6 K/mm3 (0.7-4.5); Lymphocytes % 24.3 % (10-50); Mean Corpuscular HGB Conc 33.4 g/dL (31.8-35.4); Mean Corpuscular Hemoglobin 30.8 pg (27.0-31.2); Mean Corpuscular Volume 92.2 fl (81-99); Mean Platelet Volume 7.8 fl (7.4-10.4); Monocytes # 0.3 K/mm3 (0.1-1.0); Monocytes % 4.4 % (1.7-9.3); Neutrophils # 4.2 K/mm3 (1.8-7.8); Neutrophils % 63.2 % (37.0-80.0); Platelet Count 247 K/mm3 (142-424); Red Blood Count 3.86 M/mm3 (4.20-5.40); Red Cell Distribution Width 14.2 % (11.5-17.5); White Blood Count 6.6 K/mm3 (4.8-10.8)
[2023-10-22 15:38] LABS: Alanine Aminotransferase 24 U/L (12-78); Albumin/Globulin Ratio 1.4 (1.1-1.8); Alkaline Phosphatase 82 U/L (38-126); Anion Gap 13.3 mEq/L (5-15); Aspartate Amino Transferase 33 U/L (14-36); Bilirubin,Total 1.5 mg/dl (0.2-1.3); Blood Urea Nitrogen 13 mg/dl (7-17); Calcium 9.5 mg/dl (8.4-10.2); Carbon Dioxide 30 mmol/L (22.0-30.0); Chloride 104 mmol/L (98-107); Estimated Glomerular Filt Rate 69 ml/min (>60); GFR (African American) 84 ML/MIN (>60); Globulin 2.9 g/dL (1.3-3.2); Glucose 128 mg/dl (74-100); Potassium 4.3 mmoL/L (3.5-5.1); Sodium 143 mmol/L (136-145); Total Protein,Serum 6.9 g/dl (6.3-8.2)
[2023-10-22 16:15] LABS: Thyroid Stimulating Hormone 3.95 uIU/mL (0.465-4.68)
== END 2023-10-22 23:59 | disposition home or self-care (01) ==
LOC: LAB.DROPOF 14:23
PROVIDERS: PCP Family Medicine; Visit Provider Family Medicine
DX: R73.09 Other abnormal glucose (principal); R63.4 Abnormal weight loss; R17 Unspecified jaundice; R79.9 Abnormal finding of blood chemistry, unspecified; Z68.1 Body mass index [BMI] 19.9 or less, adult
CPT/HCPCS: 80053; 83036; 84443; 85025

== ENCOUNTER 2023-11-25 10:15 | Outpatient (CLI) | payer MEDICARE, SELFPAY ==
[2023-11-25 20:00] LABS: Creatinine,Urine Random 28 mg/dL (Not Estab.); Microalbumin < 6.000 mg/L (0-16.7)
== END 2023-11-25 23:59 | disposition home or self-care (01) ==
LOC: LAB.DROPOF 11-26 10:16
PROVIDERS: PCP Family Medicine; Visit Provider Family Medicine
DX: E11.9 Type 2 diabetes mellitus without complications (principal); Z79.84 Long term (current) use of oral hypoglycemic drugs
CPT/HCPCS: 82043; 82570

== ENCOUNTER 2023-12-10 18:54 | Outpatient (CLI) | payer MEDICARE, OTHER, SELFPAY ==
[2023-12-10 20:23] LABS: Alanine Aminotransferase 28 U/L (12-78); Albumin Level 4.1 g/dl (3.5-5.0); Albumin/Globulin Ratio 1.5 (1.1-1.8); Alkaline Phosphatase 73 U/L (38-126); Amylase 41 U/L (30-110); Anion Gap 10.2 mEq/L (5-15); Aspartate Amino Transferase 35 U/L (14-36); Bilirubin,Total 1.4 mg/dl (0.2-1.3); Blood Urea Nitrogen 21 mg/dl (7-17); Calcium 9.5 mg/dl (8.4-10.2); Carbon Dioxide 28 mmol/L (22.0-30.0); Chloride 106 mmol/L (98-107); Estimated Glomerular Filt Rate 69 ml/min (>60); GFR (African American) 84 ML/MIN (>60); Globulin 2.7 g/dL (1.3-3.2); Glucose 102 mg/dl (74-100); Lipase 43 U/L (23-300); Potassium 4.2 mmoL/L (3.5-5.1); Sodium 140 mmol/L (136-145); Total Protein,Serum 6.8 g/dl (6.3-8.2)
== END 2023-12-10 23:59 | disposition home or self-care (01) ==
LOC: LAB.DROPOF 18:57
PROVIDERS: PCP Family Medicine; Visit Provider Family Medicine
DX: R10.10 Upper abdominal pain, unspecified (principal)
CPT/HCPCS: 80053; 82150; 83690

== ENCOUNTER 2023-12-11 10:24 | Emergency (ER) | payer MEDICARE, SELFPAY ==
[2023-12-11 10:24] VITALS: BP 167/88; PULSE 74; RESP 16; TEMP 36.7; O2SAT 99; BMI 19.9
--- NOTE | 2023-12-11 10:25 | ECG_ITS ---
APPROVED REPORT Exam: Resting ECG HR:67 bpm ECG Measurements Heart Rate 67 AXES SD 90 P 200 QRSd 82 QRS -17 QT 400 T 71 QTc 416 Conclusion SINUS RHYTHM WITH SHORT SD INTERVAL SEPTAL MYOCARDIAL INFARCTION , OF INDETERMINATE AGE [40+ ms Q WAVE IN V1/V2] ABNORMAL ECG UNCONFIRMED REPORT Electronically signed by : YENY PAINTER, 12/11/2023 16:27:21
--- NOTE | 2023-12-11 10:31 | ED_ITS ---
Discharge Plan Disposition Patient Disposition: Home, Self-Care Condition: Good Chief Complaint: Recheck/Abnormal Lab/Rx Prescriptions Prescriptions: No Action Ubrelvy 50 mg tablet 50 mg PO ONCE PRN (Reason: migraine headache) Qty: 10 0RF aspirin 81 mg tablet 81 mg PO DAILY quqgusllpgyu-woleeapu-kjdflj Tablet 1 tab PO DAILY Qty: 90 0RF metformin 500 mg tablet 500 mg PO DAILY Qty: 30 2RF pantoprazole 40 mg tablet,delayed release (DR/EC) 40 mg PO DAILY Qty: 90 3RF atorvastatin 40 mg tablet 40 mg PO DAILY Qty: 90 3RF propranolol 120 mg capsule,extended release 24 hr 120 mg PO DAILY Qty: 90 3RF losartan 25 mg tablet 25 mg PO DAILY Qty: 90 3RF (DME) blood-glucose meter [Accu-Chek Guide Glucose Meter] Misc See Rx Instructions .ROUTE .MEDSUPPLY Qty: 1 0RF Rx Instructions: testing bid. diagnosis code e11.9 diabetes (DME) Accu-Chek Guide test strips Strip See Rx Instructions .ROUTE .MEDSUPPLY Qty: 50 2RF Rx Instructions: As directed QD e11.9 (DME) lancets [Accu-Chek Softclix Lancets] Misc See Rx Instructions .ROUTE .MEDSUPPLY Qty: 100 2RF Rx Instructions: bid testing. e11.9 diabetes. Referrals Follow up/Referrals: Artemio Crow MD [Primary Care Provider] - See instructions Activity Restrictions/Add. Instructions Additional Instructions/Restrictions: You have been evaluated in the ED for your complaints. You may follow-up with your PCP in the next 3 to 5 days. Please return to ED for any new or worsening symptoms. Please continue to take your blood pressure medications as prescribed Clinical Impressions Clinical Impression: Headache HTN (hypertension) Qualifiers: Hypertension type: primary hypertension Qualified Code(s): I10 - Essential (primary) hypertension Discharge ED Provider: Mahendra Hopper General Adult HPI General Chief complaint: Recheck/Abnormal Lab/Rx Stated complaint: HTN, Headache Time Seen by Provider: 12/11/23 10:25 History of Present Illness HPI narrative: 78-year-old female with past medical history significant for hypertension on losartan 25 mg daily, DM2, HLD, GERD, presents today for evaluation concerning high blood pressure reads with associated frontal headache onset this morning. Patient states that around 5 AM she woke up with a frontal headache and took her blood pressure noting systolic pressures of 153. At that time she took 25 mg of losartan and lay back down in bed. Around 9 AM she states that her headache was persistent and she again checked her blood pressure and it was noted to be 206/100. She did take another 25 mg of losartan at that time and called EMS. EMS reported pressures of 213/87 in the left arm and 174/72 in right arm. EMS also gave sublingual nitroglycerin en route to ED. Patient states that her headache has since improved. Denies any chest pain, shortness of breath, nausea, vomiting, fevers, abdominal pain, visual disturbances, numbness, tingling or weakness or any other associated symptoms at this time Related Data Home Medications Medication Instructions Recorded Confirmed aspirin 81 mg tablet 81 mg PO DAILY 01/15/23 12/10/23 Previous Rx's Medication Instructions Recorded xtthlrztttss-dixsdksb-ppdbqy tablet 1 tab PO DAILY #90 tabs 02/20/23 atorvastatin 40 mg tablet 40 mg PO DAILY #90 tabs 07/03/23 pantoprazole 40 mg tablet,delayed 40 mg PO DAILY #90 tabs 07/03/23 release propranolol 120 mg capsule,24 120 mg PO DAILY #90 caps 07/15/23 hr,extended release losartan 25 mg tablet 25 mg PO DAILY #90 tabs 10/19/23 metformin 500 mg tablet 500 mg PO DAILY #30 tabs 11/25/23 blood sugar diagnostic (Accu-Chek #50 ea 12/02/23 Guide test strips) blood-glucose meter (Accu-Chek #1 ea 12/02/23 Guide Glucose Meter) lancets (Accu-Chek Softclix #100 ea 12/10/23 Lancets) ubrogepant 50 mg tablet (Ubrelvy) 50 mg PO ONCE PRN migraine 12/10/23 headache #10 tabs Allergies Allergy/AdvReac Type Severity Reaction Status Date / Time Beta-Blockers Allergy Mild rash Verified 12/10/23 13:49 (Beta-Adrenergic Bloc Penicillins AdvReac tongue Verified 12/10/23 13:49 swelling PFSH COUNT INCLUDES THE [facility] Disclaimer: The information contained in this section may have been updated after the patient was seen, as this information can be updated by other users. 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 Breast pain, left Left breast mass HTN (hypertension) Dizziness Dyspnea Screening mammogram, encounter for Elevated troponin Allergies Asthma Surgical History Hx of cholecystectomy History of bowel resection History of hysterectomy Family History Father Parkinson disease Mother Hypertension Heart attack Sister Hypertension Cancer Son Adopted Family/Other Coronary artery disease Social History Smoking Status: Never smoker alcohol intake: never current occupational status: retired Travel in the last 8 weeks: None ROS Obtained: Yes All systems reviewed & no additional complaints except as documented Physical Exam General General appearance: alert and in no apparent distress Head Head exam: atraumatic and normocephalic Eye Eye exam: Present normal appearance, PERRL and EOMI ENT ENT exam: Present normal oropharynx and mucous membranes moist Neck Neck exam: Present full ROM; Absent meningismus Respiratory Respiratory exam: Absent respiratory distress, wheezes, stridor or accessory muscle use Cardiovascular Cardiovascular exam: Present normal rhythm Abdominal Exam Abdominal exam: Present soft; Absent distention, tenderness, guarding, rebound or rigidity Neurological Exam Neurological exam: Present alert, oriented X3 and CN II-XII intact; Absent motor sensory deficit Psychiatric Psychiatric exam: Present normal affect and normal mood Skin Skin exam: Present warm and dry Medical Decision Making Medical Records Medical records reviewed: Yes I reviewed the patient's medical records. Kvng Inquiry Pt receiving controlled substance: No Kvng was queried for this patient: No Vital Signs: 12/11/23 10:24 12/11/23 11:17 12/11/23 11:31 Temperature 98.0 F Temperature Source Oral Pulse Rate 54 L 52 L Pulse Rate [Radial] 74 Respiratory Rate 16 Blood Pressure 131/55 L 113/57 L Blood Pressure [Right Arm] 167/88 H Blood Pressure Mean [Right Arm] 114 Blood Pressure Source [Right Arm] Automatic Cuff Blood Pressure Position [Right Arm] Sitting 02 Sat by Pulse Oximetry 99 96 96 Oxygen Delivery Method Room Air 12/11/23 11:50 Temperature Temperature Source Pulse Rate 56 L Pulse Rate [Radial] Respiratory Rate Blood Pressure 119/54 L Blood Pressure [Right Arm] Blood Pressure Mean [Right Arm] Blood Pressure Source [Right Arm] Blood Pressure Position [Right Arm] 02 Sat by Pulse Oximetry 98 Oxygen Delivery Method Lab Data Lab Results 12/11/23 10:25: WBC 7.1, RBC 3.91 L, Hgb 12.1 L, Hct 34.9 L, MCV 89.2, MCH 30.9, MCHC 34.7, RDW 14.3, Plt Count 223, MPV 8.7, Neut % (Auto) 64.5, Lymph % (Auto) 22.0, Mcpherson % (Auto) 4.8, Eos % (Auto) 8.1, Baso % (Auto) 0.5, Neut # (Auto) 4.6, Lymph # (Auto) 1.6, Mcpherson # (Auto) 0.3, Eos # (Auto) 0.6 H, Baso # (Auto) 0.0, PT 10.8, INR 0.96, Sodium 140, Potassium 3.9, Chloride 105, Carbon Dioxide 29, Anion Gap 9.9, BUN 15 D, Creatinine 0.70, Estimated Creat Clear 36, Estimated GFR 81, Est GFR ( Amer) 98, Glucose 147 H D, Calcium 9.7, Total Bilirubin 1.7 H, AST 39 H, ALT 31, Alkaline Phosphatase 81, Total Protein 7.3, Albumin 4.3, Globulin 3.0, Albumin/Globulin Ratio 1.4 12/11/23 10:25 12/11/23 10:25 Orders (Tests/Meds): ORDERS Category Date Time Status CT head/brain wo con Stat Cat Scan 12/11/23 10:36 Completed CBC w/Auto Diff [Complete Blood Count Auto Diff] Stat Lab 12/11/23 10:25 Completed CMP [Comprehensive Metabolic Panel] Stat Lab 12/11/23 10:25 Completed PT/INR [Prothrombin Time INR] Stat Lab 12/11/23 10:25 Completed Medical Decision Narrative: 78-year-old female with past medical history significant for hypertension on losartan 25 mg daily, DM2, HLD, GERD, presents today for evaluation concerning high blood pressure reads with associated frontal headache onset this morning. Patient states that around 5 AM she woke up with a frontal headache and took her blood pressure noting systolic pressures of 153. At that time she took 25 mg of losartan and lay back down in bed. Around 9 AM she states that her headache was persistent and she again checked her blood pressure and it was noted to be 206/100. She did take another 25 mg of losartan at that time and called EMS. EMS reported pressures of 213/87 in the left arm and 174/72 in right arm. EMS also gave sublingual nitroglycerin en route to ED. Patient states that her headache has since improved. On assessment she was hemodynamically stable and in no acute distress. Afebrile. Her chest was clear to auscultation bilaterally. Abdomen soft nondistended and nontender to palpation. Blood pressure rate of 156/86. Other physical exam findings unremarkable. Differential diagnoses include but limited to hypertensive emergency, hypertensive urgency, tension headache, cluster headache, migraine, among others. Her EKG was with normal sinus rhythm with a rate of 67 bpm. [place] interval of 90. No ischemic changes. Labs today were nonactionable. CT head did not show any acute abnormalities. On reassessment she remains hemodynamically stable and in no acute distress. Well-appearing. Asymptomatic. Blood pressure of 134/59. I discussed ED workup and results with patient and daughter who is now at bedside. Instructed them to follow-up with primary care provider who manages patient's blood pressure medications for reassessment. Patient will also monitor her blood pressure at home. I provided her with strict return to ED precautions. Verbalized understanding and agreement with plan and was subsequently discharged hemodynamically stable and in no acute distress. Critical Care Critical Care Time Critical Care Time: No
--- NOTE | 2023-12-11 10:36 | CT_ITS ---
FINAL REPORT CLINICAL HISTORY: DAILEY, N, HTN COMPARISON: None FINDINGS: Axial images of the head were obtained without contrast. Coronal and sagittal reformatted images were also obtained. This study was performed with techniques to keep radiation doses as low as reasonably achievable (ALARA). Individualized dose reduction techniques using automated exposure control or adjustment of mA and/or kV according to the patient's size were employed. There is generalized age-appropriate atrophy. Periventricular low-attenuation areas are seen consistent with mild chronic ischemic changes. There is no evidence of intracranial hemorrhage or mass. There is no evidence of acute infarct. There is no evidence of shift of the midline structures. No skull abnormality is seen on the bone window images. IMPRESSION: Atrophy and mild periventricular chronic ischemic changes. No acute intracranial abnormality identified. Reviewed, Interpreted and Dictated by Candelario Hunter III, MD Transcribed by Sarah Tim Authenticated and [facility]
[2023-12-11 10:39] LABS: Basophils % 0.5 % (0.1-2.0); Eosinophils # 0.6 K/mm3 (0.0-0.4); Eosinophils % 8.1 % (0.1-12.0); Hematocrit 34.9 % (37.0-47.0); Hemoglobin 12.1 g/dL (12.2-16.2); Lymphocytes # 1.6 K/mm3 (0.7-4.5); Mean Corpuscular HGB Conc 34.7 g/dL (31.8-35.4); Mean Corpuscular Hemoglobin 30.9 pg (27.0-31.2); Mean Corpuscular Volume 89.2 fl (81-99); Mean Platelet Volume 8.7 fl (7.4-10.4); Monocytes # 0.3 K/mm3 (0.1-1.0); Monocytes % 4.8 % (1.7-9.3); Neutrophils # 4.6 K/mm3 (1.8-7.8); Neutrophils % 64.5 % (37.0-80.0); Platelet Count 223 K/mm3 (142-424); Red Blood Count 3.91 M/mm3 (4.20-5.40); Red Cell Distribution Width 14.3 % (11.5-17.5); White Blood Count 7.1 K/mm3 (4.8-10.8)
[2023-12-11 10:45] LABS: INR 0.96 (0.9-1.1); Prothrombin Time 10.8 seconds (10.1-12.5)
[2023-12-11 10:47] LABS: Alanine Aminotransferase 31 U/L (12-78); Albumin Level 4.3 g/dl (3.5-5.0); Albumin/Globulin Ratio 1.4 (1.1-1.8); Alkaline Phosphatase 81 U/L (38-126); Anion Gap 9.9 mEq/L (5-15); Aspartate Amino Transferase 39 U/L (14-36); Bilirubin,Total 1.7 mg/dl (0.2-1.3); Blood Urea Nitrogen 15 mg/dl (7-17); Calcium 9.7 mg/dl (8.4-10.2); Carbon Dioxide 29 mmol/L (22.0-30.0); Chloride 105 mmol/L (98-107); Creatinine Clearance Estimated 36 mL/min (50-200); Estimated Glomerular Filt Rate 81 ml/min (>60); GFR (African American) 98 ML/MIN (>60); Glucose 147 mg/dl (74-100); Potassium 3.9 mmoL/L (3.5-5.1); Sodium 140 mmol/L (136-145); Total Protein,Serum 7.3 g/dl (6.3-8.2)
[2023-12-11 11:17] VITALS: BP 131/55; PULSE 54; O2SAT 96
[2023-12-11 11:31] VITALS: BP 113/57; PULSE 52; O2SAT 96
[2023-12-11 11:50] VITALS: BP 119/54; PULSE 56; O2SAT 98
[2023-12-11 13:02] VITALS: BP 134/59; PULSE 54; RESP 16; TEMP 36.7; O2SAT 99
== END 2023-12-11 13:02 | disposition home or self-care (01) ==
PROVIDERS: Emergency Provider Emergency Medicine; PCP Family Medicine
DX: R51.9 Headache, unspecified (principal); I10 Essential (primary) hypertension; E11.9 Type 2 diabetes mellitus without complications; K21.9 Gastro-esophageal reflux disease without esophagitis; E78.5 Hyperlipidemia, unspecified; Z79.84 Long term (current) use of oral hypoglycemic drugs
CPT/HCPCS: 70450; 80053; 85025; 85610; 93005; 99284

== ENCOUNTER 2023-12-18 07:57 | Outpatient (CLI) | payer MEDICARE, OTHER, SELFPAY ==
--- NOTE | 2023-12-18 07:58 | CA_ITS ---
FINAL REPORT CLINICAL HISTORY: uncontrolled hypertension COMPARISON: None FINDINGS: Aorta velocity: 74 cm/sec Right kidney: 9 cm. No evidence of hydronephrosis or mass. Right intrarenal RI: 0.83 Right renal artery velocity: 95 cm/sec. Right RAR (Renal artery-Aortic Ratio): 1.3 Left Kidney: 9.2 cm. No evidence of hydronephrosis or mass. Left intrarenal RI: 0.82 Left renal artery velocity: 123 cm/sec. Left RAR (Renal Artery-Aortic Ratio): 1.7 IMPRESSION: No evidence of significant renal artery stenosis. CT angiogram or postcontrast MR angiogram would be more sensitive for evaluation of possible renal artery stenosis. Reviewed, Interpreted and Dictated by Teresa Barney MD Transcribed by Sarah Tim Authenticated and [facility]
== END 2023-12-18 23:59 | disposition home or self-care (01) ==
LOC: RT 07:58
PROVIDERS: PCP Family Medicine; Visit Provider Family Medicine
DX: I10 Essential (primary) hypertension (principal)
CPT/HCPCS: 93976

== ENCOUNTER 2023-12-22 02:23 | Emergency (ER) | payer MEDICARE, SELFPAY ==
[2023-12-22 02:23] VITALS: BP 168/68; PULSE 67; RESP 18; TEMP 37.1; O2SAT 98; BMI 20.1
--- NOTE | 2023-12-22 02:38 | HMH.EDGENADL ---
Discharge Plan Disposition Patient Disposition: Home, Self-Care Prescriptions Prescriptions: No Action amlodipine 2.5 mg tablet 2.5 mg PO DAILY Qty: 14 1RF losartan 25 mg tablet 25 mg PO BID Qty: 60 0RF Ubrelvy 50 mg tablet 50 mg PO ONCE Qty: 10 0RF Rx Instructions: 1 daily prn migraine headache aspirin 81 mg tablet 81 mg PO DAILY fgxvrqtcnogp-gyfvkrhj-tiqcix Tablet 1 tab PO DAILY Qty: 90 0RF metformin 500 mg tablet 500 mg PO DAILY Qty: 30 2RF pantoprazole 40 mg tablet,delayed release (DR/EC) 40 mg PO DAILY Qty: 90 3RF atorvastatin 40 mg tablet 40 mg PO DAILY Qty: 90 3RF propranolol 120 mg capsule,extended release 24 hr 120 mg PO DAILY Qty: 90 3RF (DME) blood-glucose meter [Accu-Chek Guide Glucose Meter] Misc See Rx Instructions .ROUTE .MEDSUPPLY Qty: 1 0RF Rx Instructions: testing bid. diagnosis code e11.9 diabetes (DME) Accu-Chek Guide test strips Strip See Rx Instructions .ROUTE .MEDSUPPLY Qty: 50 2RF Rx Instructions: As directed QD e11.9 (DME) lancets [Accu-Chek Softclix Lancets] Misc See Rx Instructions .ROUTE .MEDSUPPLY Qty: 100 2RF Rx Instructions: bid testing. e11.9 diabetes. Referrals Follow up/Referrals: Provider,Referral, MD [Primary Care Provider] - See instructions Activity Restrictions/Add. Instructions Additional Instructions/Restrictions: Please follow-up with your primary care provider. Please return to the emergency department if you develop any new or worsening symptoms or become concerned for your health. Clinical Impressions Clinical Impression: Asymptomatic hypertension Discharge ED Provider: Bandar Bundy General Adult HPI General Chief complaint: Recheck/Abnormal Lab/Rx Stated complaint: HTN Time Seen by Provider: 12/22/23 02:24 History of Present Illness HPI narrative: 78-year-old female with recent development of hypertension presents for asymptomatic hypertension. She reports that she was doing some work in her basement when she someone told her that her face looked flushed. Her blood pressure and noted it to be about 200 systolic. She then called the ambulance. She denies any chest pain abdominal pain shortness of breath headache vision changes dizziness etc. She is being evaluated for the sources of her hypertension. She is currently on losartan and another blood pressure medication that she cannot recall at this time. She has follow-up with her PCP in the morning. Related Data Home Medications Medication Instructions Recorded Confirmed aspirin 81 mg tablet 81 mg PO DAILY 01/15/23 12/15/23 Previous Rx's Medication Instructions Recorded bvmhngptwysf-demwmzck-ayhpgn tablet 1 tab PO DAILY #90 tabs 02/20/23 atorvastatin 40 mg tablet 40 mg PO DAILY #90 tabs 07/03/23 pantoprazole 40 mg tablet,delayed 40 mg PO DAILY #90 tabs 07/03/23 release propranolol 120 mg capsule,24 120 mg PO DAILY #90 caps 07/15/23 hr,extended release metformin 500 mg tablet 500 mg PO DAILY #30 tabs 11/25/23 blood sugar diagnostic (Accu-Chek #50 ea 12/02/23 Guide test strips) blood-glucose meter (Accu-Chek #1 ea 12/02/23 Guide Glucose Meter) lancets (Accu-Chek Softclix #100 ea 12/10/23 Lancets) amlodipine 2.5 mg tablet 2.5 mg PO DAILY #14 tabs 12/15/23 losartan 25 mg tablet 25 mg PO BID #60 tabs 12/15/23 ubrogepant 50 mg tablet (Ubrelvy) 50 mg PO ONCE #10 tabs 12/15/23 Allergies Allergy/AdvReac Type Severity Reaction Status Date / Time Beta-Blockers Allergy Mild rash Verified 12/15/23 09:02 (Beta-Adrenergic Bloc Penicillins AdvReac tongue Verified 12/15/23 09:02 swelling PFSH PFS Disclaimer: The information contained in this section may have been updated after the patient was seen, as this information can be updated by other users. 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 Breast pain, left Left breast mass HTN (hypertension) Dizziness Dyspnea Screening mammogram, encounter for Elevated troponin Allergies Asthma Surgical History Hx of cholecystectomy History of bowel resection History of hysterectomy Family History Father Parkinson disease Mother Hypertension Heart attack Sister Hypertension Cancer Son Adopted Family/Other Coronary artery disease Social History Smoking Status: Never smoker alcohol intake: never current occupational status: retired Travel in the last 8 weeks: None ROS Obtained: Yes All systems reviewed & no additional complaints except as documented Physical Exam General General appearance: alert and in no apparent distress Head Head exam: atraumatic and normocephalic Eye Eye exam: Present normal appearance, PERRL and EOMI ENT ENT exam: Present normal oropharynx and normal external ear exam Neck Neck exam: Present normal inspection and full ROM Chest Chest inspection: Present normal inspection and symmetric chest wall rise; Absent tenderness Respiratory Respiratory exam: Present normal lung sounds bilaterally; Absent respiratory distress Cardiovascular Cardiovascular exam: Present regular rate and normal rhythm Abdominal Exam Abdominal exam: Present soft; Absent distention, tenderness or guarding Extremities Exam Extremities exam: Present normal inspection; Absent edema or joint swelling Back Exam Back exam: Present normal inspection; Absent tenderness Neurological Exam Neurological exam: Present alert and oriented X3; Absent motor sensory deficit Psychiatric Psychiatric exam: Present normal affect and normal mood Skin Skin exam: Present warm, dry and normal color Lymphatic Lymphatic Findings: no adenopathy Medical Decision Making Medical Records Medical records reviewed: Yes I reviewed the patient's medical records. Kvng Inquiry Pt receiving controlled substance: No Kvng was queried for this patient: No Lab Data Lab results reviewed: Yes I reviewed the patient's lab results. Medical Decision Narrative: 70-year-old female with history of recently diagnosed hypertension presents for asymptomatic hypertension. Differential diagnosis includes was not limited to asymptomatic hypertension, hypertensive urgency, hypertensive emergency. Patient denies any symptoms of any kind at this time. Blood pressure on arrival 168/68. Extensive interactive discussion was had with patient regarding her presentation, blood pressure control, return precautions etc. Patient discharged in stable condition. Blood work, radiographic imaging, EKG etc. was considered but deemed unnecessary given history and exam. Procedures Risk/Benefits of Procedure(s) Were Explained: Yes Critical Care Critical Care Time Critical Care Time: No
[2023-12-22 02:50] VITALS: BP 136/85; PULSE 67; RESP 18; TEMP 37.1; O2SAT 98
== END 2023-12-22 03:12 | disposition home or self-care (01) ==
PROVIDERS: Emergency Provider Emergency Medicine
DX: R23.2 Flushing (principal); I10 Essential (primary) hypertension
CPT/HCPCS: 99283

== ENCOUNTER 2023-12-23 07:21 | Outpatient (CLI) | payer MEDICARE, OTHER, SELFPAY ==
--- NOTE | 2023-12-23 07:22 | CT_ITS ---
FINAL REPORT TECHNIQUE: Axial images through the abdomen and pelvis were performed. This study was performed with techniques to keep radiation doses as low as reasonably achievable, (ALARA). Individualized dose reduction techniques using automated exposure control or adjustment of mA and/or kV according to the patient's size were employed. CLINICAL HISTORY: history of pancreatic cyst COMPARISON: None FINDINGS: CT ABDOMEN AND PELVIS WITH CONTRAST TECHNIQUE: IV contrast enhanced exam COMPARISON: None . FINDINGS: ABDOMEN: There are severe atrophic changes in the parenchyma of the pancreas. There is diffuse mild dilatation of the pancreatic duct measuring up to 4 mm in diameter, with a small cyst in the pancreatic head measuring 9 mm in size. This may reflect changes of chronic pancreatitis with pseudocyst formation, with cystic neoplasm less likely. Adrenal hyperplasia is present. Surgical changes are present in the small bowel. There is a large diverticulum of the gastric fundus. PELVIS: The appendix is not visualized. The uterus has been surgically resected. The bladder is distended. IMPRESSION: There is diffuse mild dilatation of the pancreatic duct up to 4 mm, with a small cyst in the pancreas head, 9 mm in size. This may reflect changes of chronic pancreatitis with pseudocyst formation, cystic neoplasm less likely. Consider follow-up CT examination in 6 months for further evaluation. Reviewed, Interpreted and Dictated by Vera Manzo MD Transcribed by Sarah Tim Authenticated and [facility]
== END 2023-12-23 23:59 | disposition home or self-care (01) ==
LOC: RAD 07:22
PROVIDERS: PCP Family Medicine; Visit Provider Family Medicine
DX: K86.2 Cyst of pancreas (principal); I10 Essential (primary) hypertension
CPT/HCPCS: 74177; Q9967

== ENCOUNTER 2024-01-06 08:05 | Outpatient (CLI) | payer MEDICARE, OTHER, SELFPAY ==
[2024-01-11 07:49] LABS: Metanephrine, U,24hr 139 ug/24 hr (36-209); Metanephrine, Ur 63 ug/L (Undefined); Normetanephr.,U,24h 229 ug/24 hr (131-612); Normetanephrine, Ur 104 ug/L (Undefined)
[2024-01-14 18:20] LABS: Dopamine, Ur, 24hr 152 ug/24 hr (0-510); Dopamine, Urine 69 ug/L (Undefined); Epinephrine, U, 24hr <7 ug/24 hr (0-20); Epinephrine, Urine <3 ug/L (Undefined); Norepinephrine, Ur 16 ug/L (Undefined); Norepinephrine,U,24h 35 ug/24 hr (0-135); VMA, Urine 1.2 mg/L (Undefined); VMA, Urine, 24hr 2.6 mg/24 hr (0.0-7.5)
== END 2024-01-06 23:59 | disposition home or self-care (01) ==
LOC: LAB.DROPOF 08:06
PROVIDERS: PCP Family Medicine; Visit Provider Family Medicine
DX: I10 Essential (primary) hypertension (principal)
CPT/HCPCS: 82384; 83835; 84585

== ENCOUNTER 2024-01-25 08:17 | Outpatient (CLI) | payer MEDICARE, OTHER, SELFPAY ==
--- NOTE | 2024-01-25 08:20 | MM_ITS ---
PROCEDURE INFORMATION: Exam: MG Bilateral Screening 3D Mammography Exam date and time: 01/25/2024 8:11 AM Age: 78 years old Clinical indication: Screening examination TECHNIQUE: Imaging protocol: Bilateral Screening tomosynthesis and 2D mammography including computer-aided detection (CAD) when performed. COMPARISON: 1. MG MM DIG SCREENING MAMM BI W/CAD 01/26/2023 9:31 AM 2. MG DIGIT MAMM SCREENING 10/09/2017 8:00 AM FINDINGS: MAMMOGRAPHY: Breast composition: There are scattered areas of fibroglandular density. Mass: None. Architectural distortion: None. Calcifications: No suspicious calcifications. Asymmetric density: None. Skin thickening: None. Axillary adenopathy: None. IMPRESSION: No mammographic evidence of malignancy. Annual screening is recommended unless otherwise clinically indicated. ASSESSMENT: BI-RADS Category 1: Negative
== END 2024-01-25 23:59 | disposition home or self-care (01) ==
LOC: RAD 08:18
PROVIDERS: PCP Family Medicine; Visit Provider Family Medicine
DX: Z12.31 Encounter for screening mammogram for malignant neoplasm of breast (principal)
CPT/HCPCS: 77063; 77067

== ENCOUNTER 2024-02-12 10:26 | Outpatient (CLI) | payer MEDICARE, OTHER, SELFPAY | END 2024-02-12 23:59 | disposition home or self-care (01) | LOC: LAB.DROPOF 02-15 12:29 | PROVIDERS: PCP Family Medicine; Visit Provider Family Medicine | DX: I10 Essential (primary) hypertension (principal) | CPT/HCPCS: 82088 ==

== ENCOUNTER 2024-02-16 09:16 | Outpatient (CLI) | payer MEDICARE, OTHER, SELFPAY ==
[2024-04-11 15:58] LABS: Renin Activity, Plasma 0.384
== END 2024-02-16 23:59 | disposition home or self-care (01) ==
LOC: LAB 09:18
PROVIDERS: PCP Family Medicine; Visit Provider Family Medicine
DX: I10 Essential (primary) hypertension (principal)
CPT/HCPCS: 36415; 84244

== ENCOUNTER 2024-03-03 11:13 | Outpatient (CLI) | payer MEDICARE, OTHER, SELFPAY | END 2024-03-03 23:59 | disposition home or self-care (01) | LOC: LAB.DROPOF 03-04 11:14 | PROVIDERS: PCP Nurse Practitioner Family; Visit Provider Nurse Practitioner Family | DX: N39.0 Urinary tract infection, site not specified (principal) | CPT/HCPCS: 87086; 87088; 87186 ==

== ENCOUNTER 2024-03-22 10:20 | Outpatient (CLI) | payer MEDICARE, OTHER, SELFPAY ==
[2024-03-22 17:53] LABS: Microscopic, Urine URINE MICROSCOPIC (MICROSCOPIC)
[2024-03-22 18:31] LABS: Appearance,Urine CLEAR (Clear); Bilirubin,Urine Negative (Negative); Blood, Urine Negative (Negative); Color,Urine YELLOW (Yellow); Glucose,Urine (UA) Negative (Negative); Ketones,Urine Negative (Negative); Leukocyte Esterase,Urine 1+ (Negative); Nitrate,Urine Negative (Negative); Protein,Urine Negative (Negative)
[2024-03-22 18:48] LABS: Bacteria,Urine 2+ /lpf; Squamous Epithelial Cell,Urine 20-50 #/hpf (0-5)
[2024-03-22 18:57] LABS: Hemoglobin A1C 6.3 % (4.0-6.0)
[2024-03-22 19:16] LABS: Albumin Level 3.6 g/dl (3.5-5.0); Chloride 103 mmol/L (98-107); Potassium 4.1 mmoL/L (3.5-5.1); Sodium 138 mmol/L (136-145)
[2024-03-22 19:18] LABS: Blood Urea Nitrogen 13 mg/dl (7-17); Estimated Glomerular Filt Rate 54 ml/min (>60); GFR (African American) 65 ML/MIN (>60)
[2024-03-22 19:19] LABS: Alanine Aminotransferase 27 U/L (12-78); Albumin/Globulin Ratio 1.4 (1.1-1.8); Alkaline Phosphatase 56 U/L (38-126); Anion Gap 12.1 mEq/L (5-15); Aspartate Amino Transferase 27 U/L (14-36); Bilirubin,Total 2.4 mg/dl (0.2-1.3); Calcium 8.6 mg/dl (8.4-10.2); Carbon Dioxide 27 mmol/L (22.0-30.0); Chol/HDL Ratio 2.9 (1-3.5); Cholesterol 86 mg/dl (140-200); Globulin 2.5 g/dL (1.3-3.2); Glucose 214 mg/dl (74-100); HDL Cholesterol 30 mg/dl (40-60); Total Protein,Serum 6.1 g/dl (6.3-8.2); Triglycerides 91 mg/dl (30-150); VLDL Cholesterol 18 mg/dL (0-40)
[2024-03-22 19:31] LABS: Direct LDL Cholesterol 31.87 mg/dL (100-129)
== END 2024-03-22 23:59 | disposition home or self-care (01) ==
LOC: LAB.DROPOF 03-23 10:20
PROVIDERS: PCP Family Medicine; Visit Provider Family Medicine
DX: E78.5 Hyperlipidemia, unspecified (principal); N30.01 Acute cystitis with hematuria; E11.9 Type 2 diabetes mellitus without complications; Z79.84 Long term (current) use of oral hypoglycemic drugs
CPT/HCPCS: 80053; 80061; 81001; 83036; 87086

== ENCOUNTER → 2024-05-12 19:37 | Outpatient (CLI) | payer MEDICARE, OTHER, SELFPAY | LOC: SL 19:41 | PROVIDERS: PCP Family Medicine; Visit Provider Family Medicine | DX: G47.33 Obstructive sleep apnea (adult) (pediatric) (principal) | CPT/HCPCS: 95810 ==

== ENCOUNTER 2024-05-13 14:19 | Outpatient (CLI) | payer MEDICARE, OTHER, SELFPAY ==
--- NOTE | 2024-05-13 14:21 | CA_ITS ---
APPROVED REPORT EXAM: Comprehensive 2D, Doppler, and color-flow Echocardiogram Devil Tender: Anel Foley CRT Ht: 5 ft 2 in Wt: 104lbs BSA: 1.45 BP: 101/42 mmHg Indications: Hyperlipidemia, Hypertension/HDD, AI, LV function 2D Dimensions LA Volume 19.10 mL LA Volume Index 12.90 mL/m2 (M/F) 16-34 M-Mode Dimensions RVDd 2.19 cm (0.9-2.6) LA Diam 3.39 cm (1.9-4.0) LVDd 4.35 cm (3.5-5.7) LVDs 2.49 cm (3.5-5.7) IVSd 1.13 cm (0.6-1.1) PWd 0.99 cm (0.6-1.1) EF (Teich) 74.10% FS 42.80% EDV (Teich) 85.40 mL ESV (Teich) 22.10 mL LV Diastology E Decel Time 180 (160-240 msec) E/A Ratio 0.84 MED A' 10.80 cm/s LAT A' 11.60 cm/s Aortic Valve AI PHT 539.00 ms AO Peak GR. 7.20 mmHg Mitral Valve MV E Max Francis. 79.0 (40-130 cm/s) MV A Velocity 94.0 (40-130 cm/s) E/A Ratio 0.84 MV PHT 53.0 ms Pulmonary Valve PV Peak Velocity 186.0 (50-150 cm/s) Tricuspid Valve TR P. Velocity 242.00 cm/s RAP Estimate 10.00 mmHg RVSP 33.40 mmHg Left Ventricle The left ventricle is normal size. The left ventricular systolic function is normal. The left ventricular ejection fraction is within the normal range. There is increased LV wall thickness. There is normal LV segmental wall motion. The left ventricular diastolic function is normal. LVEF is 55%. Right Ventricle The right ventricle is normal size. The right ventricular systolic function is normal. Atria Left atrium is mildly dilated. Right atrium is mildly dilated. There is no Doppler evidence of interatrial shunt. Aortic Valve The aortic valve is mildly thickened. There is no aortic valvular stenosis. Moderate aortic regurgitation. Mitral Valve The mitral valve is mildly thickened. No evidence of mitral valve stenosis. Trace mitral regurgitation. Tricuspid Valve Tricuspid valve is grossly normal in structure and function. Trace tricuspid regurgitation. There is insufficient TR jet to estimate RVSP. Pulmonic Valve The pulmonary valve is normal in structure. Mild pulmonic regurgitation. Great Vessels The aortic root is normal in size. The ascending aorta is normal in size. IVC is normal in size and collapses >50% with inspiration. Pericardium There is no pericardial effusion. Other Information Study Quality: Fair Conclusion Normal biventricular systolic function. Mild biatrial dilation. Moderate AI. Mild HI. Electronically signed by : Qing Tamez MD 05/25/2024 15:45:36
== END 2024-05-13 23:59 | disposition home or self-care (01) ==
LOC: RT 14:21
PROVIDERS: PCP Family Medicine; Visit Provider Internal Medicine
DX: I35.1 Nonrheumatic aortic (valve) insufficiency (principal); R53.83 Other fatigue; I10 Essential (primary) hypertension; R06.09 Other forms of dyspnea
CPT/HCPCS: 93306

== ENCOUNTER 2024-05-18 22:49 | Outpatient (CLI) | payer MEDICARE, OTHER, SELFPAY | END 2024-05-18 23:59 | disposition home or self-care (01) | LOC: LAB.DROPOF 22:50 | PROVIDERS: PCP Nurse Practitioner Family; Visit Provider Nurse Practitioner Family | DX: N39.0 Urinary tract infection, site not specified (principal) | CPT/HCPCS: 87086 ==

== ENCOUNTER → 2024-06-08 20:22 | Outpatient (CLI) | payer MEDICARE, OTHER, SELFPAY | LOC: SL 20:25 | PROVIDERS: PCP Family Medicine; Visit Provider Family Medicine | DX: G47.33 Obstructive sleep apnea (adult) (pediatric) (principal) | CPT/HCPCS: 95811 ==

== ENCOUNTER 2024-06-23 09:10 | Outpatient (CLI) | payer MEDICARE, SELFPAY ==
[2024-06-23 18:22] LABS: Basophils % 0.6 % (0.1-2.0); Eosinophils # 0.5 K/mm3 (0.0-0.4); Eosinophils % 7.1 % (0.1-12.0); Hematocrit 35.1 % (37.0-47.0); Hemoglobin 11.1 g/dL (12.2-16.2); Lymphocytes # 1.2 K/mm3 (0.7-4.5); Lymphocytes % 16.6 % (10-50); Mean Corpuscular HGB Conc 31.6 g/dL (31.8-35.4); Mean Corpuscular Hemoglobin 29.2 pg (27.0-31.2); Mean Corpuscular Volume 92.4 fl (81-99); Mean Platelet Volume 10.8 fl (7.4-10.4); Monocytes # 0.5 K/mm3 (0.1-1.0); Monocytes % 7.2 % (1.7-9.3); Neutrophils # 4.8 K/mm3 (1.8-7.8); Neutrophils % 68.2 % (37.0-80.0); Platelet Count 216 K/mm3 (142-424); Red Cell Distribution Width 13.9 % (11.5-17.5)
[2024-06-23 18:51] LABS: Hemoglobin A1C 6.5 % (4.0-6.0)
[2024-06-23 19:23] LABS: Alanine Aminotransferase 31 U/L (12-78); Albumin Level 3.9 g/dl (3.5-5.0); Albumin/Globulin Ratio 1.6 (1.1-1.8); Alkaline Phosphatase 74 U/L (38-126); Anion Gap 15.6 mEq/L (5-15); Aspartate Amino Transferase 36 U/L (14-36); Bilirubin,Total 1.7 mg/dl (0.2-1.3); Blood Urea Nitrogen 16 mg/dl (7-17); Calcium 9.4 mg/dl (8.4-10.2); Carbon Dioxide 24 mmol/L (22.0-30.0); Chloride 108 mmol/L (98-107); Chol/HDL Ratio 3.3 (1-3.5); Cholesterol 70 mg/dl (140-200); Estimated Glomerular Filt Rate 60 ml/min (>60); GFR (African American) 73 ML/MIN (>60); Globulin 2.4 g/dL (1.3-3.2); Glucose 151 mg/dl (74-100); HDL Cholesterol 21 mg/dl (40-60); Potassium 3.6 mmoL/L (3.5-5.1); Sodium 144 mmol/L (136-145); Total Protein,Serum 6.3 g/dl (6.3-8.2); Triglycerides 156 mg/dl (30-150); VLDL Cholesterol 31 mg/dL (0-40)
[2024-06-23 19:35] LABS: Direct LDL Cholesterol < 30.00 mg/dL (100-129)
== END 2024-06-23 23:59 | disposition home or self-care (01) ==
LOC: LAB.DROPOF 06-24 08:50
PROVIDERS: PCP Family Medicine; Visit Provider Family Medicine
DX: E11.9 Type 2 diabetes mellitus without complications (principal); D64.9 Anemia, unspecified; E78.5 Hyperlipidemia, unspecified
CPT/HCPCS: 80053; 80061; 83036; 85025

== ENCOUNTER 2024-08-24 19:51 | Outpatient (CLI) | payer MEDICARE, OTHER, SELFPAY | END 2024-08-24 23:59 | disposition home or self-care (01) | LOC: LAB.DROPOF 19:52 | PROVIDERS: PCP Nurse Practitioner Family; Visit Provider Nurse Practitioner Family | DX: R30.0 Dysuria (principal) | CPT/HCPCS: 87086 ==

== ENCOUNTER 2024-08-25 09:55 | Outpatient (CLI) | payer MEDICARE, OTHER, SELFPAY ==
[2024-08-25 10:08] LABS: Adenovirus F 40/41, stool Not Detected (NotDetected); Astrovirus Not Detected (NotDetected); Campylobacter Not Detected (NotDetected); Clostridium Difficile A/B, PCR Not Detected (NotDetected); Cryptosporidium Not Detected (NotDetected); Cyclospora Cayetanesis Not Detected (NotDetected); Entamoeba histolytica Not Detected (NotDetected); Enteroaggregative E coli Not Detected (NotDetected); Enteropathogenic E coli Not Detected (NotDetected); Enterotoxigenic E coli Not Detected (NotDetected); Giardia lamblia Not Detected (NotDetected); Norovirus Not Detected (NotDetected); Plesimonas Shigalloides, PCR Not Detected (NotDetected); Rotavirus A Not Detected (NotDetected); Salmonella, PCR Not Detected (NotDetected); Sapovirus Not Detected (NotDetected); Shiga-like toxin E coli Not Detected (NotDetected); Shigella Enterovasive E coli Not Detected (NotDetected); Vibrio Cholerae Not Detected (NotDetected); Vibrio, PCR Not Detected (NotDetected); Yersinia Entercolitica, PCR Not Detected (NotDetected)
== END 2024-08-25 23:59 | disposition home or self-care (01) ==
PROVIDERS: PCP Nurse Practitioner Family; Visit Provider Nurse Practitioner Family
DX: R19.5 Other fecal abnormalities (principal)
CPT/HCPCS: 87506

== ENCOUNTER 2024-12-28 08:00 | Outpatient (RCR) | payer MEDICARE, SELFPAY | END 2024-12-28 23:59 | disposition home or self-care (01) | LOC: PT 08:00 | PROVIDERS: PCP Family Medicine; Visit Provider Emergency Medicine | DX: S16.1XXA Strain of muscle, fascia and tendon at neck level, initial encounter (principal); S29.012A Strain of muscle and tendon of back wall of thorax, initial encounter | CPT/HCPCS: 97014; 97110; 97161; G0283 ==

== ENCOUNTER 2024-12-30 09:35 | Outpatient (CLI) | payer MEDICARE, SELFPAY ==
[2024-12-30 16:24] LABS: Hemoglobin A1C 6.2 % (4.0-6.0)
[2024-12-30 16:34] LABS: Alanine Aminotransferase 25 U/L (12-78); Albumin Level 4.0 g/dl (3.5-5.0); Albumin/Globulin Ratio 1.7 (1.1-1.8); Alkaline Phosphatase 87 U/L (38-126); Anion Gap 8.3 mEq/L (5-15); Aspartate Amino Transferase 32 U/L (14-36); Bilirubin,Total 1.1 mg/dl (0.2-1.3); Blood Urea Nitrogen 12 mg/dl (7-17); Calcium 9.8 mg/dl (8.4-10.2); Carbon Dioxide 30 mmol/L (22.0-30.0); Chloride 106 mmol/L (98-107); Cholesterol 75 mg/dl (140-200); Creatinine,Serum 0.70 mg/dl (0.52-1.04); Estimated Glomerular Filt Rate 81 ml/min (>60); GFR (African American) 98 ML/MIN (>60); Globulin 2.3 g/dL (1.3-3.2); Glucose 129 mg/dl (74-100); HDL Cholesterol 30 mg/dl (40-60); Potassium 4.3 mmoL/L (3.5-5.1); Sodium 140 mmol/L (136-145); Total Protein,Serum 6.3 g/dl (6.3-8.2); Triglycerides 90 mg/dl (30-150)
--- OUTSIDE RECORDS SUMMARY | 2024-12-31 10:18 | XMS_ITS | Clinical Summary ---
Author Organization [facility] Address [address] [place] [address] Care Team Providers Care Legal Examiner Name Role Phone Provider, No Known Primary Care Provider Unavail able Allergies Active Allergy Reactions Criticality Noted Date Comments Nadolol Hives 05/12/2017 Diltiazem Hcl Rash Low 11/21/2009 Metoprolol Hives,Rash Low 10/03/2008 Nalbuphine Hcl Other (See Comments) 07/23/2017 Makes blood pressure go up Acebutolol Hcl Shortness Of Breath High 05/12/2017 Made her asthma worse Verapamil Hives 05/12/2017 Medications propranolol XL (INNOPRAN XL) 120 MG 24 hr capsule Take 1 capsule by mouth Every Night. Active atorvastatin (LIPITOR) 40 MG tablet Take 1 tablet by mouth Daily. Active PANTOPRAZOLE SODIUM PO Take 40 mg by mouth. Active Multiple Vitamins-Minerals (CENTRUM SILVER PO) Take by mouth. Active traZODone (DESYREL) 100 MG tablet Take 50 mg by mouth Every Night. Active escitalopram (LEXAPRO) 10 MG tablet Take 1 tablet by mouth Daily. Active donepezil (ARICEPT) 5 MG tablet Take 1 tablet by mouth Daily. 30 tablet 11 9 Active ondansetron ODT (ZOFRAN-ODT) [address] 1 tablet on the tongue Every 8 (Eight) Hours As Needed for Nausea or Vomiting. 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 Cystic mass of pancreas 07/14/2017 Overview (07/14/2017): Added automatically from request for surgery [id number] Resolved Problems Problem Noted Date Diagnosed Date Resolved Date Metabolic encephalopathy 10/14/2022 Elevated procalcitonin 10/14/202210/16 Intractable nausea and vomiting 10/13/2022 10/16/2022 Hypoxic 10/13/2022 10/16/2022 Family History Medical History Relation Name Comments Parkinsonism Father Colon cancer Neg Hx Colon polyps Neg Hx Relation Name Status Comments Father Mother Social History Tobacco Use Types Packs/Day Years Used Date Smoking Tobacco: Former Smokeless Tobacco: Never Tobacco Cessation:Counseling Given: Not Answered Comments:qwuit many years ago Alcohol Use Standard Drinks/Week Comments No 0 (1 standard drink = 0.6 oz pur e alcohol) AUDIT-C Answer Date Recorded Q1: How often do you have a drink containing alcohol? Never 10/14/2022 Q2: How many drinks containi ng alcohol do you have on a typical day when you are drinking? Patient does not drink Q3: How often do you have si x or more drinks on one occasion? Never 10/14/2022 Abuse Screen Answer Date Recorded Feels Unsafe at Home or Work/School no 09/23/2024 Feels Threatened by Someone no 08/31 Does Anyone Try to Keep You From Having Contact with Others or Doing Things Outside Your Home? no 09/23/2024 Physical Signs of Abuse Present no 09/23/2024 Housing Stability Answer Date Recorded Current Living Arrangements home 09/29 Potentially Unsafe Housing Conditions none 10/14/2022 Disabilities Answer Date Recorded Difficulty Concentrating, Remembering or Making Decisions yes 10/14/2022 Difficulty Managing Errands Independently no 10/14/2022 Education Answer Date Recorded Help with school or training? Not on file Preferred Language Panamanian 10/14/2022 Comments No Sex and Gender Information Value Date Recorded Sex Assigned at Not on file Legal Sex Female 9:08 AM EST Gender Identity Not on file Sexual Orientation Not on file Last Filed Vital Signs Vital Sign Reading Time Taken Comments Blood Pressure 155/68 09/23/2024 10:30 PM EDT Pulse 76 09/23/2024 10:30 PM EDT Temperature 36.8 C (98.3 F) 09/23/2024 9:46 PM EDT Respiratory Rate 12 09/23/2024 9:46 PM EDT Oxygen Saturation 96% 09/23/2024 10:30 PM EDT Inhaled Oxygen Concentration - - Weight 46.7 kg (103 lb) 09/23/2024 9:46 PM EDT Height 154.9 cm (5' 1 ) 09/23/2024 9:46 PM EDT Body Mass Index 19.46 09/23/2024 9:46 PM EDT Plan of Treatment Health Maintenance Due Date Last Done Comments COLOGUARD 1990 COLON CANCER SCREENING 5 ISAAK Cerda SIGMO[address] COLONOGRAPHY 1990 FECAL OCCULT BLOOD TEST 1990 FIT Testing (1 year) 1990 ANNUAL PHYSICAL 07/09/2017 HEPATITIS C SCREENING 07/09/2017 RSV Vaccine - Adults (1 - 1- dose 75+ series) 2020 DXA SCAN 05/17/2022 05/17/2020, 10/31, 06/04/2016, Additional history exists COVID-19 Vaccine (2023-2 5 season) 2024 03/06/2023, 04/05/2022, 12/10/2021, Additional history exists INFLUENZA VACCINE 03/01/2025 03/22/2024, , 03/27/2022, Additional history exists COLONOSCOPY 03/08/2028 03/08/2018 COLORECTAL CANCER SCREENING 03/08/2028 TDAP/TD VACCINES (4 - Td or Tdap) 10/11/2033 10/12/2023, 04/10/2015, 03/24/2011 MAMMOGRAM Discontinued 10/09/2017, 08/2016, 04/16/2015, Additional history exists ZOSTER VACCINE Completed 07/03/2022, 04/05/2022 Pneumococcal Vaccine 50+ Completed 024, 05/16/2020, 03/14/2019, Additional history exists Procedures Procedure Name Priority Date/Time Associated Diagnosis Comments SCANNED - COLONOSCOPY 03/08/2018 from Last 3 Months or Most Recently Relevant to Health Maintenance Results * SCANNED - COLONOSCOPY (03/08/2018) Ozzy Alcaraz MD CHART REVIEW T ABS Final Result from Last 3 Months or Most Recently Relevant to Health Maintenance Insurance [employer] MEDICARE Member Subscriber Plan / Payer (Ef fective 2010-Present) Name:Zenaida Fowler Member ID:[id number] Relation to Subscriber:Self Name:Zenaida Fowler Subscriber ID:[id number] Payer ID:[id number] Group ID:Not on file Type:Not on file Address: [address] [place] [phone] [facility] [place] [address] [employer] Advance Directives * CPR (Attempt to Resuscitate) (Latest Code Status on File) Date Activated Date Inactivated Comments 10/14/2022 2:09 AM 10/16/2022 1:53 PM Question Answer Comments Code Status (Patient has no pulse and is not breathing): CPR (Attempt to Resuscitate) Medical Interventions (Patie nt has pulse or is breathing): Full Support Care Teams Legal Examiner Relationship Specialty Start Date End Date Provider, No Known [facility] [place] [address] PCP - General 10/13/22
== END 2024-12-30 23:59 | disposition home or self-care (01) ==
LOC: LAB.DROPOF 12-31 10:16
PROVIDERS: PCP Family Medicine; Visit Provider Family Medicine
DX: E11.9 Type 2 diabetes mellitus without complications (principal)
CPT/HCPCS: 80053; 80061; 83036

== ENCOUNTER 2025-02-27 15:00 | Outpatient (CLI) | payer MEDICARE, SELFPAY ==
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
--- OUTSIDE RECORDS SUMMARY | 2025-02-28 10:06 | XMS_ITS | Clinical Summary ---
[facility] [address] [address] Care Team Providers Care Project Control Manager Name Role Phone Provider, No Known Primary [...] (07/14/2017): Added automatically from request for surgery [id number] Resolved Problems Problem Noted Date Diagnosed Date [...] or training? Not on file Preferred Language Albanian 10/14/2022 Comments No Sex and Gender Information [...] 05/17/2022 05/17/2020, 10/31, 06/04/2016, Additional history exists INFLUENZA VACCINE 12/30/2024 03/22/2024, , 03/27/2022, Additional history exists COVID-19 Vaccine (2024-2 6 season) 2025 03/06/2023, 04/05/2022, 12/10/2021, Additional history exists COLONOSCOPY 03/08/2028 03/08/2018 COLORECTAL [...] Payer (Ef fective 2010-Present) Name:Zenaida Fowler Member ID:[id number] Relation to Subscriber:Self Name:Zenaida Fowler Subscriber ID:[id number] Payer ID:[id number] Group ID:Not on file Type:Not on file Address: [address] [place] [phone] [facility] [place] [place] [address] [employer] Advance Directives * CPR (Attempt to Resuscitate) (Latest Code Status on File) Date Activated Date Inactivated Comments 10/14/2022 2:09 AM 10/16/2022 1:53 PM Question Answer Comments Code Status (Patient has no pulse and is not breathing): CPR (Attempt to Resuscitate) Medical Interventions (Patie nt has pulse or is breathing): Full Support Care Teams Project Control Manager Relationship Specialty Start Date End Date Provider, No Known [facility] [place] [address] PCP - General 10/13/22
== END 2025-02-27 23:59 | disposition home or self-care (01) ==
LOC: LAB.DROPOF 02-28 09:55
PROVIDERS: PCP Student in an Organized Health Care Education/Training Program; Visit Provider Student in an Organized Health Care Education/Training Program
DX: N39.0 Urinary tract infection, site not specified (principal)
CPT/HCPCS: 87086; 87088; 87186

== ENCOUNTER 2025-04-19 09:16 | Outpatient (CLI) | payer MEDICARE, SELFPAY ==
[2025-04-19 09:21] LABS: Microscopic, Urine URINE MICROSCOPIC (MICROSCOPIC)
[2025-04-19 11:51] LABS: Bilirubin,Urine Negative (Negative); Color,Urine YELLOW (Yellow); Glucose,Urine (UA) Negative (Negative); Ketones,Urine TRACE (Negative); Leukocyte Esterase,Urine TRACE (Negative); PH,Urine 5.5 (5.0-8.5); Protein,Urine Negative (Negative); Specific Gravity, Urine 1.020 (1.005-1.030); Urobilinogen,Urine 1.0 EU/dl (0.2)
[2025-04-19 12:01] LABS: Bacteria,Urine Trace /lpf; Calcium Oxalate Crystals,Urine 2+ /lpf
== END 2025-04-19 23:59 | disposition home or self-care (01) ==
LOC: LAB 09:17
PROVIDERS: PCP Family Medicine; Visit Provider Physician Assistant
DX: N39.0 Urinary tract infection, site not specified (principal); M54.50 Low back pain, unspecified; K86.1 Other chronic pancreatitis; I35.1 Nonrheumatic aortic (valve) insufficiency; I10 Essential (primary) hypertension
CPT/HCPCS: 81001

== ENCOUNTER 2025-05-16 10:07 | Outpatient (CLI) | payer MEDICARE, SELFPAY ==
--- OUTSIDE RECORDS SUMMARY | 2025-05-16 10:37 | XMS_ITS | Clinical Summary ---
[facility] Address [address] [place] [address] Care Team Providers Care Timber Management Assistant Name Role Phone Provider, No Known Primary [...] (07/14/2017): Added automatically from request for surgery [id number] Resolved Problems Problem Noted Date Diagnosed Date [...] or training? Not on file Preferred Language Burmese 10/14/2022 Comments No Sex and Gender Information [...] Testing (1 year) 1990 ANNUAL PHYSICAL 07/09/2017 RSV Vaccine - Adults (1 - 1- dose 75+ series) 2020 DXA SCAN 05/17/2022 05/17/2020, 10/31, 06/04/2016, Additional history exists INFLUENZA VACCINE 12/30/2024 03/22/2024, , 03/27/2022, Additional history exists COVID-19 Vaccine (2024-07 6 season) 2025 03/06/2023, 04/05/2022, 12/10/2021, Additional history exists COLONOSCOPY 03/08/2028 03/08/2018 COLORECTAL CANCER SCREENING 03/08/2028 TDAP/TD VACCINES (3 - Td or Tdap) 10/11/2033 10/12/2023, 04/10/2015, [...] Relevant to Health Maintenance Insurance RAILROAD MEDICARE [facility] [place] [address] [place] [employer] Advance Directives * CPR (Attempt to Resuscitate) (Latest Code Status on File) Date Activated Date Inactivated Comments 10/14/2022 2:09 AM 10/16/2022 1:53 PM Question Answer Comments Code Status (Patient has no pulse and is not breathing): CPR (Attempt to Resuscitate) Medical Interventions (Patie nt has pulse or is breathing): Full Support Care Teams Timber Management Assistant Relationship Specialty Start Date End Date Provider, [place] [address] PCP - General 10/13/22
== END 2025-05-16 23:59 | disposition home or self-care (01) ==
LOC: RT 10:09
PROVIDERS: PCP Family Medicine; Visit Provider Physician Assistant
DX: R00.2 Palpitations (principal)
CPT/HCPCS: 93270

== ENCOUNTER 2025-05-23 07:42 | Outpatient (CLI) | payer MEDICARE, SELFPAY ==
--- OUTSIDE RECORDS SUMMARY | 2025-05-23 07:46 | XMS_ITS ---
Laboratory report Created on: May 02, 2025 NEFTALYDURGA : 1945 Sex: Female Author Organization Unknown PROBLEMS Problems List Code Description RESULTS Laboratory Orders Date Order Code Test 2024-02-12 [id number] ALDOSTERONE LCMS , SERUM Laboratory Results Date LOINC Test Value Unit Reference Range Interpre tation 2024-02-12 1763-2 ALDOSTERONE 2.1 NG/DL 0.0-30.0
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
--- OUTSIDE RECORDS SUMMARY | 2025-05-23 07:46 | XMS_ITS ---
Author Organization Unknown TREATMENT PLAN [facility] Start Date Provider Encounter for Check-up [id number] [facility]
--- OUTSIDE RECORDS SUMMARY | 2025-05-23 07:46 | XMS_ITS | Clinical Summary ---
[facility] [address] [place] [address] Care Team Providers Care Manager Union Name Role Phone Provider, No Known Primary [...] (07/14/2017): Added automatically from request for surgery [id number] Resolved Problems Problem Noted Date Diagnosed Date [...] or training? Not on file Preferred Language Stateless 10/14/2022 Comments No Sex and Gender Information [...] Relevant to Health Maintenance Insurance RAILROAD MEDICARE [facility] [place] [address] [place] [employer] Advance Directives * CPR (Attempt to Resuscitate) (Latest Code Status on File) Date Activated Date Inactivated Comments 10/14/2022 2:09 AM 10/16/2022 1:53 PM Question Answer Comments Code Status (Patient has no pulse and is not breathing): CPR (Attempt to Resuscitate) Medical Interventions (Patie nt has pulse or is breathing): Full Support Care Teams Manager Union Relationship Specialty Start Date End Date Provider, [place] [address] PCP - General 10/13/22
--- OUTSIDE RECORDS SUMMARY | 2025-05-23 07:46 | XMS_ITS ---
Laboratory report Created on: May 02, 2025 NEFTALYDURGA : 1945 Sex: Female Author Organization Unknown PROBLEMS Problems List Code Description RESULTS Laboratory Orders Date Order Code Test 2024-02-16 [id number] RENIN ACTIVITY, PLASMA Laboratory Results Date LOINC Test Value Unit Reference Range Interpre tation 2024-02-16 2915-7 RENIN ACTIVITY, PLASMA .384 NG/ML/HR 0.167-5.380
--- OUTSIDE RECORDS SUMMARY | 2025-05-23 07:46 | XMS_ITS | Data Portability ---
Author Organization [place] - [facility], [employer] Address [address] [facility] [address] [place] [address] Care Team Providers Care Parts Cataloger Name Role Phone VERN BALLESTEROSHEN Primary Care Provider Assessment No assessment recorded. Plan of Treatment [...] Modified By Organization Details Last Modified Time 09/28/2024 [id number] Pre-CallRewilliams [email or web address] Pre-call review started at 2024-09-28 14:03 EDT Glucometer Readings: No glucose readings in the past 7 days. Glucose 30-day fasting average: 136, non-fasting average: 135 BP Cuff Readings: Blood Pressure 7-day average: 156 / 79 Blood Pressure 30-day average: 152 / 75 Review Notes Most recent nurse notes were reviewed. Most recent provider notes were reviewed. Clinical TopicsCall InitiationConnection Not Connected: the member could not be reached for this visit. Care Message The member was sent the following care message via SMS after reviewing their chart: Jean Estevez, this is Nurse Grisel with [employer]. I tried calling but we weren't able to connect. I've reviewed your chart. I noticed your readings were off track. Please ensure you continue to monitor and take your medications as prescribed by your provider. Your next scheduled appt is on 09/30/2024 2:00-3:00 PM EDT. Post-Call DocumentationPerformed By Grisel Sharma Time spent 7 minutes. Additional Details Assessed patients readings in RIQ, reviewed chart. Attempted to call patient. No answer. SMS sent with appt reminder. Second phone call to patient. No answer. Answering machine continues to state phone number is no longer in service. Attempted to call emergency contact, no answer. Sent email to email in [place] requesting member [facility] [email or web address] Not available 09/28/2024 14:11:19 09/30/2024 [id number] Pre-CallReview Prashant gooden Pre-call review started at 2024-09-30 14:05 EDT Glucometer Readings: No glucose readings in the past 7 days. Glucose 30-day fasting average: 136, non-fasting average: 136 BP Cuff Readings: Blood Pressure 7-day average: 154 / 75 Blood Pressure 30-day average: 151 / 74 Review Notes Most recent nurse notes were reviewed. Most recent provider notes were reviewed. Clinical TopicsCall InitiationConnection Not Connected: the member could not be reached for this visit. Care Message The member was sent the following care message via SMS after reviewing their chart: Jean Estevez, this is Nurse Elsa with [employer]. I tried calling but we weren't able to connect. I've reviewed your chart. I've updated your care plan to go over ways we can help you reach your goals. Let's discuss my review at your next scheduled appt on 10/14/2024 2:00-3:00 PM EDT. Post-Call DocumentationPerformed By Elsa Garcia Time spent 5 minutes. Additional Details Unable to reach member for [place] visit. Recording states number no longer exists or is not in service. Sent sms [email or web address] Not available 09/30/2024 14:10:49 10/14/2024 [id number] Pre-CallRewilliams R berkley Pre-call review started at 2024-10-14 14:42 EDT Glucometer Readings: No glucose readings in the past 7 days. Glucose 30-day fasting average: 125, non-fasting average: undefined BP Cuff Readings: Blood Pressure 7-day average: 145 / 69 Blood Pressure 30-day average: 152 / 75 Review Notes Most recent nurse notes were reviewed. Most recent provider notes were reviewed. Clinical TopicsCall InitiationConnection Not Connected: the member could not be reached for this visit. Care Message The member was sent the following care message via SMS after reviewing their chart: Tanmayzane Machadoly, this is Nurse Grisel with [employer]. I tried calling but we weren't able to connect. I've reviewed your chart. I've updated your care plan to go over ways we can help you reach your goals. Let's discuss my review at your next scheduled appt on 10/28/2024 2:00-3:00 PM EDT. Post-Call DocumentationPerformed By Grisel Sharma Time spent 5 minutes. Additional Details Assessed patients readings in RIQ, reviewed chart. Attempted to call patient. No answer. SMS sent with appt reminder. Second phone call to patient. No answer, continues to say number not in service [email or web address] Not available 10/14/2024 14:47:35 10/27/2024 [id number] Pre-CallReview Prashant gooden Pre-call review started at 2024-10-27 17:00 EDT Glucometer Readings: No glucose readings in the past 7 days. No glucose readings in the past 30 days. BP Cuff Readings: Blood Pressure 7-day average: 159 / 82 Blood Pressure 30-day average: 150 / 75 Review Notes Most recent nurse notes were not reviewed. Most recent provider notes were not reviewed. Clinical TopicsAsync ReviewNo call was needed.Care Message The member was sent the following care message via SMS after reviewing their chart: Jean Estevez, this is Nurse Brianne with [employer]. I've reviewed your chart. I noticed your readings were off track. Please ensure you continue to monitor and take your medications as prescribed by your provider. Your next scheduled appt is on 10/28/2024 2:00-3:00 PM EDT. Urgent Alerts The member had critical readings that triggered an urgent alert. Symptoms and additional details: 09/2809:19 AM135/67 mmHg Post-Call DocumentationPerformed By Brianne Espinoza Time spent 3 minutes. Additional Details contacted via sms [email or web address] Not available 10/27/2024 17:03:27 10/28/2024 [id number] Pre-CallReview R berkley Pre-call review started at 2024-10-28 14:15 EDT Glucometer Readings: No glucose readings in the past 7 days. No glucose readings in the past 30 days. BP Cuff Readings: Blood Pressure 7-day average: 160 / 84 Blood Pressure 30-day average: 147 / 73 Review Notes Most recent nurse notes were reviewed. Most recent provider notes were reviewed. Clinical TopicsCall InitiationConnection Not Connected: the member could not be reached for this visit. Care Message The member was sent the following care message via SMS after reviewing their chart: Jean Estevez, this is Nurse Grisel with [facility] [employer]. I tried calling but we weren't able to connect. I've reviewed your chart. I've updated your care plan to go over ways we can help you reach your goals. Let's discuss my review at your next scheduled appt on 11/11/2024 2:00-3:00 PM EDT. Post-Call DocumentationPerformed By Grisel Sharma Time spent 7 minutes. Additional Details Assessed patients readings in RIQ, reviewed chart. Attempted to call patient. No answer. SMS sent with appt reminder. Second phone call to patient. No answer. Unable to LVM d/t answering machine continues to say number does not exist. Emergency contact has already been tried and no response via email. [email or web address] Not available 10/28/2024 14:34:42 Reason for Referral None Reported. Problems Name Problem SNOMED Code Status Onset Date Resolution Date Notes Provider Name and Address Organization Details Recorded Time Hypertensive disorder 74452246 Active 2023 ARSH MACEDO NP [address] , [place], [address], [facility] 4 12:24:17 Migraine 56628869 Active 2023 ARSH MACEDO NP [address] , [place], [address], [facility] 4 12:24:24 Hyperlipidemia 52363260 Active 2023 ARSH MACEDO NP [address] , [place], [address], [facility] 4 12:24:32 Obstructive sleep apnea syndrome 65036122 Active 2023 ARSH MACEDO, PEST CONTROL TECHNICIAN [address] , [place], [address], [facility] 4 16:25:17 Type 2 diabetes mellitus 89105459 Active 2023 ARSH MACEDO, PEST CONTROL TECHNICIAN [address] , [place], [address], [facility] 16:25:48 Problem Notes None recorded. Procedures Surgical History Date Name Laterality Status Provider Name and Address Organization Details Recorded Time tumor destruction completed ARSH MACEDO NP [address], [place], [address], [facility] 10/09/2023 12:22:45 Imaging Results None recorded. Procedure Notes None recorded. Medical Equipment None Reported. Allergies Allergen ID Allergen Name Allergen Category Reaction Reaction Severity Criticality Documentation Date Start Date Code Code System Note Provider Name and Address Organization Details Recorded Time 82698 Product containin g penicilli n (product) medicatio n Not available Not available Not available 10/09/2023 07536 8001 [facility]ED [facility]25 14592 Product containin g beta adrenergi c receptor antagonis t (product) medicatio n Not available Not available Not available 10/09/2023 11116 009 SNOMED SOME ARSH MACEDOYASMINE [address] , [place], [address], [facility] 12:34:54 30557 nadolol medicatio n hives Not available Not available 10/09/2023 7226 RxNorm ARSH MACEDOYASMINE [address] , [place], [address], [facility] 12:33:26 49926 diltiazem Not available rash Not available Not available 10/09/2023 3443 RxNorm ARSH MACEDOYASMINE [address] , [place], [address], [facility] 4 12:33:39 18439 metoprolo l Not available hives rash Not available Not available Not available 10/09/2023 6918 RxNorm ARSH MACEDO, PEST CONTROL TECHNICIAN [address] , [place], [address], [facility] 4 12:33:58 97812 nalbuphin e medicatio n Not available Not available Not available 10/09/2023 7238 RxNorm incre ases BP ARSH MACEDO, PEST CONTROL TECHNICIAN [address] , [place], [address], [facility] 4 12:34:22 95615 acebutolo l medicatio n dyspnea Not available high 10/09/2023 149 RxNorm ARSH MACEDO, YASMINE [address] , [place], [address], [facility] 4 12:34:43 Medications Name Sig Start Date Stop Date Status Note LastModified by Organization Details LastModified Time losartan 50 mg tablet Take 1 tablet every day by oral route. 12/24 completed Not Available Not Available Not Available atorvastati n 40 mg tablet Take 1 tablet every day by oral route. active Not Available Not Available No t Available metformin 500 mg tablet TAKE 1 TABLET BY MOUTH ONCE DAILY active Not Available Not Available No t Available Accu-Chek Softclix Lancets USE 1 LANCET TO CHECK GLUCOSE TWICE DAILY active Not Available Not Available No t Available amlodipine 2.5 mg tablet TAKE 1 TABLET BY MOUTH ONCE DAILY 02/14 completed Not Available Not Available Not Available amlodipine 5 mg tablet Take 1 tablet every day by oral route in the morning. 02/14 completed Not Available Not Available Not Available amlodipine 10 mg tablet TAKE 1 TABLET BY MOUTH ONCE DAILY active Not Available Not Available No t Available losartan 25 mg tablet TAKE 1 TABLET BY MOUTH TWICE DAILY active Not Available Not Available No t Available propranolol ER 120 mg capsule,24 hr,extended release Take 1 capsule every day by oral route. active Not Available Not Available No t Available escitalopra m 5 mg tablet TAKE 1 TABLET BY MOUTH ONCE DAILY active Not Available Not Available No t Available nitrofurant oin monohydrate /macrocryst als 100 mg capsule TAKE 1 CAPSULE BY MOUTH EVERY 12 HOURS WITH A MEAL FOR 10 DAYS active Not Available Not Available No t Available Accu-Chek Guide test strips USE STRIP DIRECTED TWICE DAILY active Not Available Not Available No t Available Accu-Chek Guide Me Glucose Meter USE TO CHECK GLUCOSE TWICE DAILY active Not Available Not Available No t Available Ubrelvy 50 mg tablet Take by oral route. active Not Available Not Available No t Available aspirin 81 mg capsule Take 1 capsule every day by oral route. active Not Available Not Available No t Available Vitals None Recorded Social History Question Answer Notes LastModified by Melodigram Details LastModified Time Tobacco Smoking Status Never Smoker ARSH MACEDO NP [address], [place], [address], [facility] 10/09/2023 12:32:34 What Is Your Level Of Caffeine Consumption? Occasional [email or web address] Information not available 10/09/2023 Sex: Unknown Functional Status Question Answer Note LastModified by [employer] Details LastModified Time What is your level of alcohol consumption? Occasional [email or web address] Information not available 10/09/2023 Mental Status None recorded. Family History Nothing Reported. Medical History Condition Response Diabetes N Coronary Artery Disease Y Obesity N Vision or Eye Problems N Seizures/Epilepsy N Hyperthyroidism N Varicosities or PVD N Congestive Heart Failure (CHF) N Cancer N Stroke N COPD N Asthma Y Hypothyroidism N Depression Y Sleep Apnea Y High Cholesterol Y Headaches Y Hypertension Y Kidney Disease N Gynecological HistoryNo gynecological history recorded. Obstetrics History GPAL:G 0 P 0 0 0 0 Past Encounters Encounter ID Performer Location Encounter Start Date Encounter Closed Date Diagnosis/Indication Diagnosis SNOMED-CT Code Diagnosis ICD10 Code Diagnosis IMO Codes Diagnosis Note [id number] ARSH MACEDO NP [facility]_Provid er Schedule [address] [place] [address] 10/09/2023 12:02:13 10/09/2023 12:36:12 Hypertensive disorder 77411005 I10 [id number] ARSH MACEDO NP NS_Nursin g Schedule [address] [place] [address] 10/20/2023 15:52:18 10/20/2023 16:12:14 Hypertensive disorder 79076428 I10 [id number] ARSH MACEDO NP NS_Nursin g Schedule [address] [place] [address] 10/30/2023 14:32:30 10/30/2023 15:36:55 Hypertensive disorder 38119278 I10 [id number] ARSH MACEDO NP [facility]Provid er Schedule [address] [place] [address] 11/20/2023 13:21:35 11/20/2023 13:38:36 Hypertensive disorder 76241592 I10 -Continue the following medication s as prescribed : losartan, 50 mg qd and propranolo l ER, 120 mg qd-Incorpo rate diet, exercise, and stress management into daily routine.-C ontinue daily BP readings.- Highlighte d importance of BP reading technique. -Follow-up with nurse for RPM visits.-Wi ll send her readings to her PCP today ahead of her upcoming appointmen t. Also will send her the link to the [facility] [employer] [facility]arlene so that she can have all of her readings accessible . Is positionin g of device correct? YES.Drinki ng at least 48-64 oz of water per day, if no fluid restrictio n? YES.Watchi ng salt intake? YES. [id number] ARSH MACEDO NP NS[facility]Nursin g Schedule [address] [place] [address] 11/27/2023 13:54:01 11/27/2023 14:04:20 Hypertensive disorder 67988963 I10 [id number] ARSH MACEDO NP NS_Nursin g Schedule [address] [place] [address] 12/25/2023 14:30:10 12/25/2023 14:46:54 Hypertensive disorder 54124728 I10 [id number] ARSH MACEDO NP NS[facility]Nursin g Schedule [address] [place] [phone] 01/08/2024 13:58:41 01/08/2024 14:19:44 Hypertensive disorder 94324824 I10 [id number] ARSH MACEDO NP NS[facility]Nursin g Schedule [address] [place] [id number] 02/05/2024 13:45:54 02/05/2024 13:59:21 Hypertensive disorder 04419161 I10 [id number] ARSH MACEDO NP PS_Provid er Schedule [address] [place] [address] 02/15/2024 16:13:00 02/15/2024 16:26:52 Hypertensive disorder 43258503 I10 Type 2 adryan betes mellitus 55035062 E11.65 -Start Remote Patient Monitoring -Continue all current medication s. -Incorpora te diet and exercise into daily routine. -Start checking your blood sugar 1 times daily before breakfast. -Highlight ed importance of glucose reading technique. -Follow-up with nurse for RPM visits. [id number] ARSH MACEDO NP NS[facility]Nursin g Schedule [address] [place] [address] 02/19/2024 14:49:03 02/19/2024 15:20:25 Hypertensive disorder 42276679 I10 Type 2 adryan betes mellitus 50085881 E11.65 [id number] ARSH MACEDO NP NS_Nursin g Schedule [address] [place] [address] 03/04/2024 13:37:51 03/04/2024 13:55:33 Hypertensive disorder 46782509 I10 Type 2 adryan betes mellitus 02314158 E11.65 [id number] YASMINE Murillo_Nursin g Schedule [address] [place] [address] 03/21/2024 12:46:29 03/21/2024 12:50:44 Hypertensive disorder 97011656 I10 Type 2 adryan betes mellitus 67535996 E11.65 [id number] YASMINE Murillo_Nursin g Schedule [address] [place] [address] 03/25/2024 11:59:14 03/25/2024 12:12:38 Hypertensive disorder 98033462 I10 Type 2 adryan betes mellitus 70931073 E11.65 [id number] YASMINE Murillo_Nursin g Schedule [address] [place] [address] 04/01/2024 14:06:52 04/01/2024 14:09:07 Hypertensive disorder 71083695 I10 Type 2 adryan betes mellitus 41598874 E11.65 [id number] Kaity Ramos NP NS[facility]Nursin g Schedule [address] [place] [address] 04/21/2024 09:49:57 04/21/2024 09:52:36 Type 2 diabetes mellitus 62149748 E11.65 Type 2 diabetes mellitus Hypertensive disorder 38 458932 I10 Hypertensi ve disorder [id number] Kaity Ramos NP PS_Provid er Schedule [address] [place] [address] 04/22/2024 16:08:33 04/22/2024 16:28:04 Type 2 diabetes mellitus 65459805 E11.65 Type 2 diabetes mellitus Hypertensive disorder 38 524553 I10 Hypertensi on Ongoing Care Plan: - Continue RPM to ensure proper BP control and to avoid long-term consequenc es of uncontroll ed high blood pressure. - Frequency of biomarker readings: Once daily before meds - Medicatio n recommenda tions:X continue current regimen__ make these medication changes: Diabetes Ongoing Care Plan -Continue RPM to ensure proper glucose control, gain insight into how diet affects glucose readings, and to avoid long-term adverse effects of uncontroll ed diabetes. - Frequency of Biomarker Readings: Once daily: fasting before meds/break fastIf o ther, list instructio ns here: - Medication recommenda tions:X continue current regimen__ make these medication changes: - Statin Therapy: General Nursing Care- Every 2 weeks while enrolled- Provider recommende d Care Plan Goals{docu mented in Patient Goals section- specific to member}- Telehealth Nurse to continue to monitor and adjust personaliz ed SMART goals and update goal statuses as appropriat e. Provider Visit Frequency- Every 6 months while enrolled- As needed as concerns arise - PCP/Specia list communicat ion plan: Nurses to fax readings: monthly to: __ PCP; __ cardiologi st; __ endocrinol ogist, __ other: - Additiona l testing and laboratory guidance: per PCP Additional support:Is the positionin g of the BP device correct? YES.Is member tagging glucose readings? YES.Is the member familiar with the plate method? YES.Drinki ng at least 48-64 oz of water per day, if no fluid restrictio n? No, encouraged increased water intake and water's possible impact on BP.Watchin g salt intake? YES. [id number] YASMINE Murillo_Nursin g Schedule [address] [place] [phone] 05/13/2024 15:17:39 05/13/2024 15:27:37 Type 2 diabetes mellitus 77989761 E11.65 Type 2 diabetes mellitus Hypertensive disorder 38 512032 I10 Hypertensi ve disorder [id number] Kaity Ramos NP NS[facility]Nursin g Schedule [address] [place] [id number] 05/27/2024 14:21:08 05/27/2024 14:30:49 Type 2 diabetes mellitus 29388446 E11.65 Type 2 diabetes mellitus Hypertensive disorder 38 155733 I10 Hypertensi ve disorder 145156 Kaity Ramos NP NS_Nursin g Schedule [address] [place] [address] 06/08/2024 11:22:13 06/08/2024 11:26:07 Type 2 diabetes mellitus 20334719 E11.65 Type 2 diabetes mellitus Hypertensive disorder 38 059515 I10 Hypertensi ve disorder [id number] Kaity Ramos NP NS[facility]Nursin g Schedule [address] [place] [address] 06/10/2024 14:24:32 06/10/2024 15:13:37 Type 2 diabetes mellitus 89969037 E11.65 Type 2 diabetes mellitus Hypertensive disorder 38 278773 I10 Hypertensi ve disorder 185211 Kaity Ramos NP NS_Nursin g Schedule [address] [place] [address] 06/24/2024 14:06:35 06/24/2024 14:27:21 Type 2 diabetes mellitus 96908715 E11.65 Type 2 diabetes mellitus Hypertensive disorder 38 363080 I10 Hypertensi ve disorder 222914 Kaity Ramos NP NS_Nursin g Schedule [address] [place] [id number] 07/08/2024 14:48:31 07/08/2024 15:20:45 Type 2 diabetes mellitus 15315765 E11.65 Type 2 diabetes mellitus Hypertensive disorder 38 567071 I10 Hypertensi ve disorder 949624 Kaity Ramos NP NS_Nursin g Schedule [address] [place] [address] 07/22/2024 15:04:43 07/22/2024 15:24:46 Type 2 diabetes mellitus 46160340 E11.65 Type 2 diabetes mellitus Hypertensive disorder 38 627581 I10 Hypertensi ve disorder 918138 Kaity Ramos NP NS_Nursin g Schedule [address] [place] [id number] 08/05/2024 14:07:11 08/05/2024 14:17:12 Type 2 diabetes mellitus 32152304 E11.65 Type 2 diabetes mellitus Hypertensive disorder 38 644949 I10 Hypertensi ve disorder 820832 Kaity Ramos NP NS_Nursin g Schedule [address] [place] [address] 08/19/2024 14:38:45 08/19/2024 15:00:41 Type 2 diabetes mellitus 43296473 E11.65 Type 2 diabetes mellitus Hypertensive disorder 38 162643 I10 Hypertensi ve disorder 813916 Kaity Ramos NP NS_Nursin g Schedule [address] [place] [address] 08/31/2024 11:45:35 08/31/2024 11:46:49 Type 2 diabetes mellitus 80591372 E11.65 Type 2 diabetes mellitus Hypertensive disorder 38 596539 I10 Hypertensi ve disorder 112556 Kaity Ramos NP NS_Nursin g Schedule [address] [place] [address] 09/02/2024 14:15:27 09/02/2024 14:24:11 Type 2 diabetes mellitus 17993028 E11.65 Type 2 diabetes mellitus Hypertensive disorder 38 908401 I10 Hypertensi ve disorder 581602 Kaity Ramos NP NS_Nursin g Schedule [address] [place] [id number] 09/16/2024 14:10:56 09/16/2024 14:22:16 Type 2 diabetes mellitus 83940983 E11.65 Type 2 diabetes mellitus Hypertensive disorder 38 426521 I10 Hypertensi ve disorder 037614 Kaity Ramos NP NS[facility]Nursin g Schedule [address] [place] [address] 09/26/2024 10:28:18 09/26/2024 10:31:05 Type 2 diabetes mellitus 66341561 E11.65 Type 2 diabetes mellitus Hypertensive disorder 38 842521 I10 Hypertensi ve disorder 110595 Kaity Ramos NP NS_Nursin g Schedule [address] [place] [address] 09/28/2024 14:03:41 09/28/2024 14:11:20 Type 2 diabetes mellitus 34195697 E11.65 Type 2 diabetes mellitus Hypertensive disorder 38 947609 I10 Hypertensi ve disorder 772762 Kaity Ramos NP NS_Nursin g Schedule [address] [place] [address] 09/30/2024 14:05:27 09/30/2024 14:10:49 Type 2 diabetes mellitus 26420888 E11.65 Type 2 diabetes mellitus Hypertensive disorder 38 481066 I10 Hypertensi ve disorder 084937 Kaity Ramos NP NS_Nursin g Schedule [address] [place] [address] 10/14/2024 14:42:44 10/14/2024 14:47:36 Type 2 diabetes mellitus 91672362 E11.65 Type 2 diabetes mellitus Hypertensive disorder 38 753461 I10 Hypertensi ve disorder [id number] YASMINE Murillo_Nursin g Schedule [address] [place] [address] 10/27/2024 17:00:11 10/27/2024 17:03:28 Type 2 diabetes mellitus 77702490 E11.65 Type 2 diabetes mellitus Hypertensive disorder 38 468897 I10 Hypertensi ve disorder 188954 Kaity Ramos NP NS_Nursin g Schedule [address] [place] [address] 10/28/2024 14:15:21 10/28/2024 14:34:43 Type 2 diabetes mellitus 73613314 E11.65 Type 2 diabetes mellitus Hypertensive disorder 38 392561 I10 Hypertensi ve disorder Goals Section Goal Description Progress Status Start Date LastModified by Organization Details LastModified Time Daily Readings None Recorded improving active 2023 Rosa Sampson Information not available 01/08/2024 18:19:17 Lowers BP readings < 140/90 None Recorded NoChange active 2023 Rosa Sampson Information not available 11/27/2023 18:02:41 Heart Healthy Diet Maintain a low sodium and low fat diet, restricting artificial sweetener use None active 2023 Rosa Sampson Information not available 01/08/2024 18:19:27 Health Concerns Section Related Observation LastModified by Organization Detai ls LastModified Time None Recorded Concern Status LastModified by Organization Details LastModified Time None Recorded Advance Directives Directive None Recorded Payers Insurance Date Sequence Insurance Name Policy Number Policy Verma Covered Member ID Verma Member ID Guarantor Name 09/28/2024 2 [employer] [place] - [place] J (MEDICARE SUPPLEMENT) Zenaida Fowler [id number] Zenaida Fowler 05/06/2024 2 UNSPECIFIED REMIT PAYOR Zenaida Fowler 08/08/2024 2 UNSPECIFIED REMIT PAYOR Zenaida Fowler 10/09/2023 1 [place] Zenaida Fowler [id number] Zenaida Fowler 09/30/2024 1 [employer]BY [employer] - MEDICARE-RAILR OAD HALFWAY BOARD (MEDICARE) Zenaida Fowler [id number] Zenaida Fowler 10/27/2024 2 [employer] Zenaida Fowler [id number] Zenaida Fowler OBGyn Episode No OBEpisode recorded.
--- NOTE | 2025-05-23 08:00 | CA_ITS ---
APPROVED REPORT EXAM: Comprehensive 2D, Doppler, and color-flow Echocardiogram Community Relations Representative: Portia Andrew RT(R) Ht: 5 ft 2 in Wt: 103lbs BSA: 1.44 BP: 132/61 mmHg Indications: abn EKG, edema, hypertension, palpitations, hyperlipidemia, hx of ablation 2D Dimensions LA Volume 19.20 mL LA Volume Index 13.33 mL/m2 (M/F) 16-34 EF AP4 66.50 % GL Strain -23.1 % M-Mode Dimensions RVDd 2.44 cm (0.9-2.6) LA Diam 3.09 cm (1.9-4.0) LVDd 4.23 cm (3.5-5.7) LVDs 3.16 cm (3.5-5.7) IVSd 0.78 cm (0.6-1.1) PWd 0.85 cm (0.6-1.1) EF (Teich) 50.30% FS 25.30% EDV (Teich) 79.90 mL ESV (Teich) 39.70 mL LV Diastology E Decel Time 290 (160-240 msec) E/A Ratio 0.8 Aortic Valve FADY Index 1.20 cm2/m2 AoV Peak Francis. 146.0 (50-130 cm/s) AI PHT 736.00 ms AO Peak GR. 8.50 mmHg AO Mean GR. 4.20 (<5 mmHg) AO VTI 37.4 (18-25 cm) FADY (VTI) 1.78 (2.5-4.5 cm2) Mitral Valve MV E Max Francis. 77.0 (40-130 cm/s) MV A Velocity 100.0 (40-130 cm/s) E/A Ratio 0.77 MV PHT 85.0 ms Left Ventricle The left ventricle is normal size. Left ventricular systolic function is normal. The left ventricular ejection fraction is within the normal range. There is increased left ventricular wall thickness. There is normal LV segmental wall motion. The left ventricular diastolic function is normal. LVEF is 55% Right Ventricle The right ventricle is normal size. The right ventricular systolic function is normal. Atria The left atrium is mildly dilated. The right atrium size is normal. There is no color Doppler evidence of interatrial shunt. Aortic Valve The aortic valve opens well. There is no hemodynamically significant aortic valvular stenosis. Mild aortic regurgitation is present. Mitral Valve The mitral valve is normal in structure. No evidence of mitral valve stenosis. Trace mitral regurgitation is present. Tricuspid Valve The tricuspid valve leaflets are thin and pliable. Mild tricuspid regurgitation. RVSP is 20-25 mmHg. Pulmonic Valve The pulmonary valve is grossly normal in structure. Trace pulmonic valve regurgitation is present. Great Vessels The aortic root is normal in size. IVC is normal in size and collapses >50% with inspiration. Pericardium There is no pericardial effusion. Other Information Study Quality: Fair Conclusion Normal biventricular systolic function. Mild LA dilation. Mild AI, mild TR. Electronically signed by : Qing Tamez MD 06/02/2025 11:41:54
== END 2025-05-23 23:59 | disposition home or self-care (01) ==
LOC: RT 07:44
PROVIDERS: PCP Family Medicine; Visit Provider Physician Assistant
DX: I08.2 Rheumatic disorders of both aortic and tricuspid valves (principal); I11.9 Hypertensive heart disease without heart failure; M54.50 Low back pain, unspecified; K86.1 Other chronic pancreatitis; N30.01 Acute cystitis with hematuria; E78.5 Hyperlipidemia, unspecified; Z87.440 Personal history of urinary (tract) infections; R94.31 Abnormal electrocardiogram [ECG] [EKG]; Z98.890 Other specified postprocedural states
CPT/HCPCS: 93306